=== PATIENT | male | born 1935 | race Caucasian/White ===

== ENCOUNTER 2022-01-08 08:23 | Inpatient (IN) | payer MEDICARE, MEDICAID, SELFPAY ==
[2022-01-08] VITALS (8 sets, daily range): BP systolic 93–138; BP diastolic 45–85; PULSE 64–67; RESP 16–20; TEMP 36.3–36.6; O2SAT 91–96; BMI 26.5; BMI 26.2
--- NOTE | ~2022-01-08 | CT_ITS ---
EXAMINATION: CT ANGIOGRAM OF THE CHEST WITH AND WITHOUT CONTRAST (CT PULMONARY ANGIOGRAM FOR PE) CLINICAL INFORMATION: Reason for Exam Hypoxia COMPARISON: January 08, 2022 TECHNIQUE: Prior to contrast administration, noncontrast localization images were obtained. Subsequently, multidetector volumetric imaging was performed from the thoracic inlet to below the diaphragms following the administration of 70 mL Omnipaque 350 intravenous contrast. No contrast reaction reported Sagittal, coronal, and MIP oblique sagittal reformatted images were obtained on the CT workstation, uploaded to PACS, and reviewed. This CT examination was performed using dose optimization techniques as appropriate, variously including the following: *Automated exposure control *Adjustment of mA and/or kV according to patient size (this includes techniques or standardized protocols for targeted exams where dose is matched to indication/reason for exam; i.e. extremities or head) *Use of iterative reconstruction technique Total exam dose-length product 484 mGy-cm FINDINGS: QUALITY OF STUDY/CONTRAST BOLUS: Satisfactory. PULMONARY ARTERIES: No central or segmental pulmonary emboli. THORACIC AORTA: Ascending thoracic aorta measures up to 4 cm in diameter. No thoracic aortic dissection is seen. No occlusive plaque is identified. LUNG: There is diffuse bilateral interstitial lung disease with fibrosis in a reticular pattern. There are also changes of paraseptal and centrilobular emphysema. The central airways are patent. There is bronchial wall thickening seen bilaterally. There is bronchiectatic change seen bilaterally. There is bilateral pleural thickening as well as a confluent region of disease medially within the left lower lobe. There is a confluent region of airspace disease seen within the right lower lobe. This does not show significant change compared to study of January 08, 2022. This may be related to pneumonia, atelectasis, or chronic scarring. There is diminished left lung volume. PLEURA: There are regions of pleural thickening seen bilaterally. No significant effusion is appreciated. MEDIASTINUM: The heart is enlarged. Status post post median sternotomy and CABG. Pacemaker in place. Coronary artery calcifications present. No pericardial effusion. There is again noted to be mediastinal lymphadenopathy with a 2.7 x 1.7 cm paratracheal lymph node and a 1.2 cm short axis lymph node in the left paratracheal region. There is an 8 mm short axis aortopulmonic window lymph node. Subcarinal lymphadenopathy is present with short axis diameter 1.1 cm. There is reflux of contrast within the hepatic veins consistent with elevated right heart pressures. CHEST WALL/AXILLA: No axillary or internal mammary lymphadenopathy. Status post median sternotomy. Pacemaker powerpack about the left anterior chest wall. OSSEOUS STRUCTURES: No acute or suspicious osseous abnormality. There is mild scoliosis of the thoracic spine convex right. UPPER ABDOMEN: There is reflux of contrast into the hepatic veins suggestive of elevated right heart pressures. CT/CT angio chest PE protocol IMPRESSION: No evidence of acute pulmonary artery embolus. Proximal ascending thoracic aorta measuring 4 cm in diameter without evidence of dissection. Diffuse interstitial lung disease with interstitial fibrosis as well as changes of centrilobular and paraseptal emphysema. Regions of confluent disease within the lower lobes bilaterally. Cardiomegaly with findings consistent with elevated right heart pressures. Mediastinal lymphadenopathy. VTE:
--- NOTE | ~2022-01-08 | CT_ITS ---
EXAMINATION: CT HEAD WITHOUT CONTRAST CLINICAL INFORMATION: Confusion COMPARISON: None TECHNIQUE: Contiguous axial imaging was performed from the skull base to vertex without intravenous administration of contrast. This CT examination was performed using dose optimization techniques as appropriate, variously including the following: *Automated exposure control *Adjustment of mA and/or kV according to patient size (this includes techniques or standardized protocols for targeted exams where dose is matched to indication/reason for exam; i.e. extremities or head) *Use of iterative reconstruction technique DLP: 764 mGy-cm FINDINGS: There is no evidence of acute intracranial hemorrhage or territorial infarction. No abnormal mass effect or midline shift is seen. Kinney to white matter differentiation is well preserved. No extra-axial fluid collections are identified. There is prominence of ventricles, sulci, and cisterns which are commensurate. There is periventricular white matter low density consistent with microangiopathy. The osseous structures and soft tissues are normal. The mastoid air cells and visualized portions of the paranasal sinuses are well aerated. CT/CT head/brain wo con IMPRESSION: No acute intracranial pathology. 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
--- NOTE | ~2022-01-08 | XR_ITS ---
EXAMINATION: XR CHEST CLINICAL INFORMATION: Altered mental status COMPARISON: None TECHNIQUE: Frontal view of the chest was obtained. FINDINGS: Cardiac silhouette is normal in size. Dual chamber pacemaker in place with tips of leads overlying the region of the right atrium and right ventricle. Prior coronary artery bypass graft surgery. There appears to be diffuse peribronchial cuffing of both lungs and nonspecific hazy and streaky pulmonary opacities. Differential diagnosis includes edema an/or inflammatory changes/pneumonia. The right lateral costophrenic sulcus is slightly blunted. A trace right pleural effusion is suspected. No pneumothorax. The visualized bones are intact. XR/XR chest 1V IMPRESSION: This is an abnormal chest radiograph. No comparison exams available to determine chronicity of abnormalities. Peribronchial cuffing and patchy pulmonary opacities could represent edema or infectious/inflammatory changes.
--- NOTE | ~2022-01-08 | CT_ITS ---
EXAMINATION: CT CHEST WITHOUT CONTRAST CLINICAL INFORMATION: Infiltrate pneumonia COMPARISON: Chest radiograph from 01/08/2022 TECHNIQUE: Multidetector volumetric CT imaging of the chest was done. Axial MIP volume rendering provided. Sagittal and coronal reformatted images were obtained. This CT examination was performed using dose optimization techniques as appropriate, variously including the following: *Automated exposure control *Adjustment of mA and/or kV according to patient size (this includes techniques or standardized protocols for targeted exams where dose is matched to indication/reason for exam; i.e. extremities or head) *Use of iterative reconstruction technique DLP: 134 mGy-cm FINDINGS: LUNGS/PLEURA: Biapical pleural parenchymal scarring. Prominent reticular nodular opacities with regions of honeycombing and bronchiectatic changes greatest in the bilateral lower lung darden suggesting elements of interstitial lung disease. Bilateral lower lung volumes and volume loss of the left lung field. Patchy radiopacities and pleural thickening in the bilateral lower lung darden, left greater than right, may represent infectious/inflammatory etiology versus atelectatic changes superimposed on chronic parenchymal changes. Correlation with symptomatology. Evaluation for nodules is limited secondary to parenchymal changes though no large suspicious pulmonary nodules or masses are noted. Central airways are patent. No pneumothorax. MEDIASTINUM: Heart is enlarged. No pericardial effusion. Coronary artery calcifications are noted. Aorta is nonaneurysmal and demonstrates atherosclerotic calcifications. Main pulmonary artery is not enlarged. Multiple enlarged paratracheal, precarinal and periaortic lymph nodes the largest measuring 1.5 cm in short axis. Visualized portions of the thyroid are unremarkable. Sternotomy wires are noted. Pacer wires terminating in the right atrium and ventricle with partially visualized pacer in the left chest. AXILLA: No lymphadenopathy. UPPER ABDOMEN: Right colonic interpositioning, Chilaiditi syndrome. Mild atrophy of the pancreas. Ectatic configuration of the abdominal aorta without aneurysmal dilatation. Mild fecal loading of the colon. OSSEOUS STRUCTURES: Multilevel degenerative changes of the thoracolumbar spine no large lytic or blastic lesions are noted. CT/CT chest wo con IMPRESSION: 1. Prominent reticular nodular opacities with regions of honeycombing and bronchiectatic changes greatest in the bilateral lower lung darden suggesting elements of interstitial lung disease. Bilateral lower lung volumes and volume loss of the left lung field. 2. Patchy radiopacities and pleural thickening in the bilateral lower lung darden, left greater than right, may represent infectious/inflammatory etiology versus atelectatic changes superimposed on chronic parenchymal changes. Correlation with symptomatology. 3. Multiple enlarged paratracheal, precarinal and periaortic lymph nodes the largest measuring 1.5 cm in short axis. 4. Right colonic interpositioning, Chilaiditi syndrome.
--- NOTE | 2022-01-08 08:30 | ED.SOB ---
HPI - SOB/Dyspnea General Stated Complaint: SOB Time Seen by Provider: 01/08/22 08:29 Source: patient Mode of arrival: ambulatory Limitations: no limitations PMFSH Past Medical History Attestation statement: The following information was validated with the patient.
--- NOTE | 2022-01-08 08:42 | ED.GENADULT ---
HPI - General Adult General Chief complaint: Failure to Thrive Stated complaint: SOB Time Seen by Provider: 01/08/22 08:29 Source: patient Mode of arrival: EMS Limitations: altered mental status (dementia) History of Present Illness HPI narrative: sent by SNF reportedly due to the patient not taking his medications for the past few weeks that have worsened, notes states he is also taking his oxygen off. He states he is fine but hungry. He is wearing his oxygen on arrival. MD complaint: refusing to take medications Onset (ago): unknown Severity: mild Relieving factors: none Exacerbating factors: none Associated symptoms: denies other symptoms Treatments prior to arrival: none Related Data Allergies Allergy/AdvReac Type Severity Reaction Status Date / Time morphine Allergy Unknown Unknown Verified 01/08/22 08:46 Review of Systems Review of Systems: ROS unable to be obtained due to dementia [facility] Past Medical History Source: nursing notes reviewed Medical History COPD (chronic obstructive pulmonary disease) Dementia Diabetes GERD (gastroesophageal reflux disease) HTN (hypertension) Social History Social History (Updated 01/08/22 @ 08:44 by Joanie Renteria DO) Patient Tobacco Use Status: Tobacco use Unknown Advance Directives: No Physical Exam ED Vital Signs: Vital Signs - 24 hr 01/08/22 08:37 01/08/22 08:47 01/08/22 10:00 Temperature 97.9 F Pulse Rate 65 65 64 Respiratory Rate 17 Blood Pressure 105/67 105/67 114/68 Pulse Oximetry 92 92 95 Oxygen Delivery Method Nasal Cannula Nasal Cannula Nasal Cannula Oxygen Flow Rate 2 2 01/08/22 08:47 01/08/22 11:04 01/08/22 13:04 Temperature Pulse Rate 65 65 Respiratory Rate 20 Blood Pressure 112/63 127/66 Pulse Oximetry 94 96 93 Oxygen Delivery Method Nasal Cannula Nasal Cannula Nasal Cannula Oxygen Flow Rate 2 2 BMI result Body Mass Index 26.5 Appearance: Alert. Oriented to self. No acute distress. Eyes: Pupils equal, round and reactive to light. ENT: Pharynx normal. Neck: Normal inspection. Neck supple. CVS: Normal heart rate and rhythm. Pulses normal. Respiratory: No respiratory distress. Breath sounds diminished but wearing his oxygen Abdomen: Soft and non-tender. Skin: Skin warm and dry. Normal skin color. Normal skin turgor. Extremities: No lower extremity edema. No calf ttp Neuro: Oriented X 1. No motor deficit. No sensory deficit. Course Course Course Narrative: patient yelling out repeatedly will give low dose zyprexa for agitation at this time. afebrile, no WBC count, abnormal CXR, no coughing still poor behavior control will obtain CT scan for further assessment of lungs no hypoxia here - using his O2, was given 2 doses of zyprexa signed out to Dr. Grady pending CT scan Medical Decision Making MDM Narrative Medical decision making narrative: 86 yo male with hx of COPD on home O2, dementia, DM, HTN, GERD sent from SNF from what EMS states due to patient not taking medications - at this time he is very happy here and asking for food, he is wearing his oxygen. I only see lexapro on his med list for agitation/behaviors. The RN was told by EMS that his agitation has been worsening. No trauma or signs of head injury noted or reported. Labs, UA, CXR ordered. Lab Data Result diagrams: 01/08/22 09:11 01/08/22 09:11 Labs: Lab Results 01/08/22 01/08/22 01/08/22 Range/Units 08:42 09:11 09:11 WBC 9.8 (4.8-10.8) X10*3/uL RBC 3.52 L (4.60-5.80) X10*6/uL Hgb 11.3 L (14.0-18.0) g/dl Hct 34.8 L (42.0-52.0) % MCV 98.9 H (80.0-98.0) fL MCH 32.1 (27.0-33.0) pg MCHC 32.5 (31.0-36.0) g/dl RDW 14.8 (11.0-16.0) % Plt Count 148 L (160-400) X10*3/uL MPV 10.0 (9.4-12.4) fL Immature Gran % (Auto) 0.2 (0.0-0.4) % Neut % (Auto) 53.9 (45-73) % Lymph % (Auto) 23.6 (20-40) % [place] % (Auto) 19.7 H (2-11) % Eos % (Auto) 1.7 (0-4) % Baso % (Auto) 0.9 (0-2) % Lymph # (Auto) 2.3 (1.2-4.9) X10*3/uL [place] # (Auto) 1.9 H (0.1-1.2) X10*3/uL Eos # (Auto) 0.2 (0.0-0.4) X10*3/uL Baso # (Auto) 0.1 (0.0-0.2) X10*3/uL Abs Immat Gran (auto) 0.02 (0.00-0.03) X10*3/uL Absolute Neuts (auto) 5.3 (2.0-8.3) x10*3/uL Absolute Nucleated RBC 0.000 (0.0-0.012) X10*3/uL Nucleated RBC % (auto) 0.0 (0.0-0.2) /100WBC Smear Tech's Comments VERIFIED Sodium 138 (135-145) mmol/L Potassium 4.2 (3.3-5.1) mmol/L Chloride 106 (96-108) mmol/L Carbon Dioxide 21 L (22-29) mmol/L Anion Gap 15 (12-20) BUN 10 (9-16) mg/dL Creatinine 1.01 (0.5-1.4) mg/dL Estim Creat Clear Calc 49.9 Estimated GFR > 60 POC Glucose 76 (60-115) mg/dL Random Glucose 103 (60-115) mg/dL Calcium 8.5 (8.4-10.2) mg/dL Magnesium 1.7 (1.6-2.6) mg/dL Total Bilirubin 0.6 (0.0-1.0) mg/dL Direct Bilirubin 0.3 (0.0-0.5) mg/dL AST 56 H (5-37) U/L ALT 48 H (0-40) U/L Alkaline Phosphatase 90 (39-117) U/L Total Protein 6.1 L (6.5-8.0) g/dL Albumin 3.4 L (3.5-5.0) g/dL Urine Color Urine Appearance Urine pH (5.0-8.0) Ur Specific [place] (1.005-1.025) Urine Protein (NEG-TRACE) MG/DL Urine Glucose (UA) (NEG) MG/DL Urine Ketones (NEG) MG/DL Urine Blood (NEG) Urine Nitrite (NEG) Ur Leukocyte Esterase (NEG) Urine RBC (0) /HPF Urine WBC (0-4) /HPF Ur Squamous Epith Cells /LPF Urine Bacteria /LPF COVID-19 ([facility]) (Negative) COVID-19 Clin Com 01/08/22 01/08/22 01/08/22 Range/Units 09:11 09:51 11:59 WBC (4.8-10.8) X10*3/uL RBC (4.60-5.80) X10*6/uL Hgb (14.0-18.0) g/dl Hct (42.0-52.0) % MCV (80.0-98.0) fL MCH (27.0-33.0) pg MCHC (31.0-36.0) g/dl RDW (11.0-16.0) % Plt Count (160-400) X10*3/uL MPV (9.4-12.4) fL Immature Gran % (Auto) (0.0-0.4) % Neut % (Auto) (45-73) % Lymph % (Auto) (20-40) % [place] % (Auto) (2-11) % Eos % (Auto) (0-4) % Baso % (Auto) (0-2) % Lymph # (Auto) (1.2-4.9) X10*3/uL [place] # (Auto) (0.1-1.2) X10*3/uL Eos # (Auto) (0.0-0.4) X10*3/uL Baso # (Auto) (0.0-0.2) X10*3/uL Abs Immat Gran (auto) (0.00-0.03) X10*3/uL Absolute Neuts (auto) (2.0-8.3) x10*3/uL Absolute Nucleated RBC (0.0-0.012) X10*3/uL Nucleated RBC % (auto) (0.0-0.2) /100WBC Smear Tech's Comments Sodium (135-145) mmol/L Potassium (3.3-5.1) mmol/L Chloride (96-108) mmol/L Carbon Dioxide (22-29) mmol/L Anion Gap (12-20) BUN (9-16) mg/dL Creatinine (0.5-1.4) mg/dL Estim Creat Clear Calc Estimated GFR POC Glucose 87 (60-115) mg/dL Random Glucose (60-115) mg/dL Calcium (8.4-10.2) mg/dL Magnesium (1.6-2.6) mg/dL Total Bilirubin (0.0-1.0) mg/dL Direct Bilirubin (0.0-0.5) mg/dL AST (5-37) U/L ALT (0-40) U/L Alkaline Phosphatase (39-117) U/L Total Protein (6.5-8.0) g/dL Albumin (3.5-5.0) g/dL Urine Color YELLOW Urine Appearance HAZY Urine pH 5.5 (5.0-8.0) Ur Specific [place] 1.015 (1.005-1.025) Urine Protein NEG (NEG-TRACE) MG/DL Urine Glucose (UA) NEG (NEG) MG/DL Urine Ketones NEG (NEG) MG/DL Urine Blood 3+ H (NEG) Urine Nitrite NEG (NEG) Ur Leukocyte Esterase NEG (NEG) Urine RBC 50-75 H (0) /HPF Urine WBC 0-2 (0-4) /HPF Ur Squamous Epith Cells TRACE /LPF Urine Bacteria NONE /LPF COVID-19 ([facility]ORA) Negative (Negative) COVID-19 Clin Com See Note 01/08/22 Range/Units 13:06 WBC (4.8-10.8) X10*3/uL RBC (4.60-5.80) X10*6/uL Hgb (14.0-18.0) g/dl Hct (42.0-52.0) % MCV (80.0-98.0) fL MCH (27.0-33.0) pg MCHC (31.0-36.0) g/dl RDW (11.0-16.0) % Plt Count (160-400) X10*3/uL MPV (9.4-12.4) fL Immature Gran % (Auto) (0.0-0.4) % Neut % (Auto) (45-73) % Lymph % (Auto) (20-40) % [place] % (Auto) (2-11) % Eos % (Auto) (0-4) % Baso % (Auto) (0-2) % Lymph # (Auto) (1.2-4.9) X10*3/uL [place] # (Auto) (0.1-1.2) X10*3/uL Eos # (Auto) (0.0-0.4) X10*3/uL Baso # (Auto) (0.0-0.2) X10*3/uL Abs Immat Gran (auto) (0.00-0.03) X10*3/uL Absolute Neuts (auto) (2.0-8.3) x10*3/uL Absolute Nucleated RBC (0.0-0.012) X10*3/uL Nucleated RBC % (auto) (0.0-0.2) /100WBC Smear Tech's Comments Sodium (135-145) mmol/L Potassium (3.3-5.1) mmol/L Chloride (96-108) mmol/L Carbon Dioxide (22-29) mmol/L Anion Gap (12-20) BUN (9-16) mg/dL Creatinine (0.5-1.4) mg/dL Estim Creat Clear Calc Estimated GFR POC Glucose 97 (60-115) mg/dL Random Glucose (60-115) mg/dL Calcium (8.4-10.2) mg/dL Magnesium (1.6-2.6) mg/dL Total Bilirubin (0.0-1.0) mg/dL Direct Bilirubin (0.0-0.5) mg/dL AST (5-37) U/L ALT (0-40) U/L Alkaline Phosphatase (39-117) U/L Total Protein (6.5-8.0) g/dL Albumin (3.5-5.0) g/dL Urine Color Urine Appearance Urine pH (5.0-8.0) Ur Specific [place] (1.005-1.025) Urine Protein (NEG-TRACE) MG/DL Urine Glucose (UA) (NEG) MG/DL Urine Ketones (NEG) MG/DL Urine Blood (NEG) Urine Nitrite (NEG) Ur Leukocyte Esterase (NEG) Urine RBC (0) /HPF Urine WBC (0-4) /HPF Ur Squamous Epith Cells /LPF Urine Bacteria /LPF COVID-19 ([facility]) (Negative) COVID-19 Clin Com ECG Data Attestation: I personally reviewed and interpreted this ECG as follows: Interpretation: Rate: 65 Rhythm: ventricular paced [place]: rightward varying p waves widened QRS complex. ST T wave : tall T waves, inverted III and aVF qTC: prolonged prior studies: no acute ischemia The study has been interpreted contemporaneously by me. Discharge Plan Discharge Clinical Impression: Dementia Patient Disposition: Still a Patient Instructions: Dementia (ED) Additional Instructions: return to ED for any worsening symptoms or concerns no hypoxia in the ED - kept oxygen on the entire time for behaviors can try to give PRN zyprexa orally 2.5mg BID or start him on risperdal BID daily for behavior control
[2022-01-08 08:46] LABS: Glucose, Whole Blood 76 mg/dL (60-115)
--- NOTE | 2022-01-08 08:46 | ECG_ITS ---
Test Reason : weakness Blood Pressure : / mmHG Vent. Rate : 065 BPM Atrial Rate : 089 BPM P-R Int : 000 ms QRS Dur : 150 ms QT Int : 464 ms P-R-T Axes : 000 144 -09 degrees QTc Int : 482 ms Sinus rhythm with complete heart block and Ventricular-paced rhythm Abnormal ECG No previous ECGs available Referred By: Joanie Renteria Electronically Signed By:TRACEE CUMMINS MD
[2022-01-08 09:23] LABS: Basophils Absolute Auto 0.1 X10*3/uL (0.0-0.2); Basophils Percent Auto 0.9 % (0-2); Eosinophils Absolute Auto 0.2 X10*3/uL (0.0-0.4); Eosinophils Percent Auto 1.7 % (0-4); Hematocrit 34.8 % (42.0-52.0); Hemoglobin 11.3 g/dl (14.0-18.0); Imm Gran Abs Auto 0.02 X10*3/uL (0.00-0.03); Imm Gran Pct Auto 0.2 % (0.0-0.4); Lymphocytes Absolute Auto 2.3 X10*3/uL (1.2-4.9); Lymphocytes Percent Auto 23.6 % (20-40); MANUAL DIFF FLAG SCAN; Mean Corpuscular Volume 98.9 fL (80.0-98.0); Monocytes Absolute Auto 1.9 X10*3/uL (0.1-1.2); Monocytes Percent Auto 19.7 % (2-11); Neutrophils Absolute Auto 5.3 x10*3/uL (2.0-8.3); Neutrophils Percent Auto 53.9 % (45-73); Platelet Count 148 X10*3/uL (160-400); Red Blood Count 3.52 X10*6/uL (4.60-5.80); Red Cell Distribution Width 14.8 % (11.0-16.0); SCAN SMEAR FLAG 1; White Blood Count 9.8 X10*3/uL (4.8-10.8)
[2022-01-08 09:30] LABS: COVID-19 Test Negative (Negative); IDNOW Serial# 9DB6401D; Mean Corpuscular HGB Conc 32.5 g/dl (31.0-36.0); Mean Corpuscular Hemoglobin 32.1 pg (27.0-33.0)
[2022-01-08 09:32] LABS: Alanine Aminotransferase 48 U/L (0-40); Albumin Level 3.4 g/dL (3.5-5.0); Alkaline Phosphatase 90 U/L (39-117); Anion Gap 15 (12-20); Aspartate Amino Transferase 56 U/L (5-37); Bilirubin Direct 0.3 mg/dL (0.0-0.5); Bilirubin Total 0.6 mg/dL (0.0-1.0); Blood Urea Nitrogen 10 mg/dL (9-16); Calcium 8.5 mg/dL (8.4-10.2); Carbon Dioxide 21 mmol/L (22-29); Chloride 106 mmol/L (96-108); Creatinine Clr Calc Pharmacy 49.9; Estimated Glomerular Filt Rate > 60; Glucose Random 103 mg/dL (60-115); Magnesium 1.7 mg/dL (1.6-2.6); Potassium 4.2 mmol/L (3.3-5.1); Sodium 138 mmol/L (135-145); Total Protein 6.1 g/dL (6.5-8.0)
[2022-01-08 09:54] LABS: SLIDE REVIEW VERIFIED
[2022-01-08] MEDS: OLANZapine 2.5 MG TABLET PO ×2 (09:58→10:54)
[2022-01-08 10:06] LABS: Glucose, Whole Blood 87 mg/dL (60-115)
--- NOTE | 2022-01-08 11:34 | PC.NURSE ---
PER EMS REPORT. PT SENT FROM [facility] FOR EVALUATION OF INCREASED AGITATION, REFUSING CARE, REMOVING O2, REFUSING MEDS. 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 PT WAS SENT TO ED FOR EVALUATION OF LOW O2 SAT. PT ALERT, HAS BASELINE DEMENTIA. PT AGITATED, YELLING HELP AND ACCUSING STAFF OF CONSPIRING TO FINISH HIM OFF . PT'S DAUGHTERS ROSA AND BÁRBARA IN TO VISIT. BOTH CONTACT INFORMATION ON FILE.
--- NOTE | 2022-01-08 12:24 | PC.NURSE ---
urine obtained via straight cath. pt combative during procedure, daughter Claudia outside of room during procedure.
[2022-01-08 12:40] LABS: Appearance Urine HAZY; Color Urine YELLOW; Glucose Urine UA NEG (NEG); Leukocyte Esterase Urine NEG (NEG); Nitrite Urine NEG (NEG); PH 5.5 (5.0-8.0); Specific Gravity - Urine 1.015 (1.005-1.025); UACC Culture Trigger NO; Urine Blood 3+ (NEG); Urine Ketones NEG (NEG); Urine Protein NEG (NEG-TRACE)
[2022-01-08 12:51] LABS: RBC Urine 50-75 /HPF (0); Squamous Epithelial Cell Urine TRACE /LPF; WBC Urine 0-2 /HPF (0-4)
[2022-01-08 13:12] LABS: Glucose, Whole Blood 97 mg/dL (60-115)
[2022-01-08 14:49] LABS: Venous Blood Gas Refer to POC result
[2022-01-08 14:52] LABS: VBG Base Excess 3.4 mmol/L; VBG HCO3 28 mmol/L (22-26); VBG pCO2 45 mmHg; VBG pO2 37 mmHg
[2022-01-08 14:58] LABS: D Dimer High Sensitivity 545 NG/ML
--- NOTE | 2022-01-08 15:11 | PHA.MEDREC ---
Pharmacy Consult ? Medication Reconciliation Pharmacy has completed the medication reconciliation. Pt from [facility] with list
[2022-01-08] MEDS: Piperacillin Sodium/Tazobactam 3.375 GM in 0.9 % Sodium Chloride 50 ML IV (15:32)
--- NOTE | 2022-01-08 15:54 | PM.IMHP ---
History of Present Illness Date of Service: 01/08/22 <CLAUDETTE Nguyen - Last Filed: 01/09/22 08:03> Attending physician on admission: Param David <CLAUDETTE Nguyen - Last Filed: 01/09/22 08:03> Chief Complaint: AMS/pneumonia <CLAUDETTE Nguyen - Last Filed: 01/09/22 08:03> Patient is an 86-year-old male with past medical history significant for coronary artery disease s/p CABG x4, sick sinus syndrome s/p pacer, idiopathic pulmonary fibrosis, COPD, uncontrolled type 2 diabetes, hypertension, BPH, GERD, and dementia who resides at [facility]. prison staff reports that patient has been increasingly agitated over the last day with decreased oxygen saturation. The patient is on 4 L of oxygen via nasal cannula at baseline with oxygen levels ranging between 90-92%. However the patient has been pulling off the nasal cannula due to agitation with oxygen saturations down to 69%. Improvement to 98% on 10L with non rebreather. In ED oxygen sat did fall to 86% on 4L. Upon discussion with direct nursing staff, the patient is alert and oriented at baseline and is able to make his needs known. He does have occasional episodes of agitation with screaming outbursts but is quickly redirected. He has had recurrent admissions due to aspiration pneumonia, most recently to [facility] on 10/29/2021. Per nursing staff from the [facility], vital signs have been stable and the patient has been afebrile. Patient is unable to provide much history. He is able to answer several questions before becoming agitated about being in the hospital and the ?cords? he is hooked up to. Much of history obtained from prior records from [facility] as well as [facility] staff. EKG in ED showed normal sinus rhythm with complete heart block with ventricular pacing. CT of the chest shows prominent reticular nodular opacities with regions of honeycombing and bronchiectatic changes in the bilateral lower lung darden, patchy radiopacities and pleural thickening in the bilateral lower lung darden, possibly representing infectious versus inflammatory etiology versus atelectatic changes superimposed on chronic parenchymal changes. Hematology studies stable, WBC 9.8. VBG essentially normal with mildly elevated HC03 of 28. Chemistries unremarkable. Urinalysis is significant for 3+ hematuria. Has received IV zosyn and continues on 2L oxygen with stable o2 sats. Has received single dose of zyprexa due to aggitation thought patient still having outbreaks of aggitation. <CLAUDETTE Nguyen - Last Filed: 01/09/22 08:03> 86-year-old male with history significant for coronary artery disease s/p CABG x4, sick sinus syndrome s/p pacer, idiopathic pulmonary fibrosis, COPD, uncontrolled type 2 diabetes, hypertension, BPH, GERD, and dementia who resides at [facility]. prison staff reports that patient has been increasingly agitated over the last day with decreased oxygen saturation. The patient is on 4 L of oxygen via nasal cannula at baseline with oxygen levels ranging between 90-92%. However the patient has been pulling off the nasal cannula due to agitation with oxygen saturations down to 69%. Improvement to 98% on 10L with non rebreather. In ED oxygen sat did fall to 86% on 4L. Upon discussion with direct nursing staff, the patient is alert and oriented at baseline and is able to make his needs known. He does have occasional episodes of agitation with screaming outbursts but is quickly redirected. He has had recurrent admissions due to aspiration pneumonia, most recently to [facility] on 10/29/2021. Per nursing staff from the [facility], vital signs have been stable and the patient has been afebrile. Patient is unable to provide much history. He is able to answer several questions before becoming agitated about being in the hospital and the ?cords? he is hooked up to. Much of history obtained from prior records from [facility] as well as [facility] staff. EKG in ED showed normal sinus rhythm with complete heart block with ventricular pacing. CT of the chest shows prominent reticular nodular opacities with regions of honeycombing and bronchiectatic changes in the bilateral lower lung darden, patchy radiopacities and pleural thickening in the bilateral lower lung darden, possibly representing infectious versus inflammatory etiology versus atelectatic changes superimposed on chronic parenchymal changes. Hematology studies stable, WBC 9.8. VBG essentially normal with mildly elevated HC03 of 28. Chemistries unremarkable. Urinalysis is significant for 3+ hematuria. Has received IV zosyn and continues on 2L oxygen with stable o2 sats. Has received single dose of zyprexa due to aggitation thought patient still having outbreaks of aggitation. <Param David MD - Last Filed: 01/10/22 08:14> Review of Systems Review of Systems: Gen: no fever Resp: no sob, no cough CV: no chest, no PARRY, no leg edema GI: No n/v, no abd pain Neuro:+ confusion <Param David MD - Last Filed: 01/10/22 08:14> Yes all other systems are reviewed and are negative <CLAUDETTE Nguyen - Last Filed: 01/09/22 08:03> [facility] Medical History: Medical History (Updated 01/09/22 @ 10:16 by CLAUDETTE Nguyen) CAD (coronary artery disease) COPD (chronic obstructive pulmonary disease) COPD exacerbation Dementia Diabetes GERD (gastroesophageal reflux disease) HTN (hypertension) Pacemaker SSS (sick sinus syndrome) <CLAUDETTE Nguyen - Last Filed: 01/09/22 08:03> Family History: Family History (Updated 01/08/22 @ 16:37 by CLAUDETTE Nguyen) Other No significant family history <CLAUDETTE Nguyen - Last Filed: 01/09/22 08:03> Pertinent family history: Unable to obtain further information from patient at this time due to mental status <CLAUDETTE Nguyen - Last Filed: 01/09/22 08:03> Surgical History: Surgical History (Updated 01/08/22 @ 16:08 by CLAUDETTE Nguyen) History of permanent cardiac pacemaker placement S/P CABG x 4 <CLAUDETTE Nguyen - Last Filed: 01/09/22 08:03> Social History: Social History (Updated 01/08/22 @ 08:44 by Joanie Renteria DO) Household Members: Other Housing: Assisted Living Facility Do you presently have visiting nurse or other home services: No Patient Tobacco Use Status: Never used Tobacco Use of substances other than those prescribed or required for medical reasons: No Currently Displaying Signs/Symptoms of Drug Intoxication Withdrawal: No Have you been hit, kicked, punched, or otherwise hurt by someone within the past year? If so, by whom?: No Do you feel safe in your current relationship?: No Current Relationship Is there a partner from a previous relationship who is making you feel unsafe now?: No Are you made to feel afraid or neglected: No Advance Directives: No Do you have thoughts of harming others: None Do you have a plan to hurt others: No Plan Nutrition Risks: No Nutritional Risk Poor oral hygiene: No service: No Current occupational status: retired <CLAUDETTE Nguyen - Last Filed: 01/09/22 08:03> Meds Allergies/Adverse reactions: Allergies Allergy/AdvReac Type Severity Reaction Status Date / Time morphine Allergy Unknown Unknown Verified 01/08/22 08:46 <CLAUDETTE Nguyen - Last Filed: 01/09/22 08:03> Active Medications: Current Medications Pharmacy Consult (Consult Rx Perform Med Rec) 1 each MISCELLANE ONCE PRN PRN Reason: Consult order <CLAUDETTE Nguyen - Last Filed: 01/09/22 08:03> Home medications: Home Medications Medication Instructions Recorded Confirmed Last Taken Type acyclovir 400 mg tablet 1 tab PO BID 01/08/22 01/08/22 Unknown History albuterol sulfate 90 mcg/actuation 2 puff inhalation Q6H PRN Wheezing 01/08/22 01/08/22 Unknown History aerosol inhaler aspirin 81 mg tablet,delayed 81 mg PO DAILY 01/08/22 01/08/22 Unknown History release cholecalciferol (vitamin D3) 25 25 mcg PO DAILY 01/08/22 01/08/22 Unknown History mcg (1,000 unit) tablet escitalopram oxalate 5 mg tablet 1 tab PO DAILY 01/08/22 01/08/22 Unknown History ferrous sulfate 324 mg (65 mg 324 mg PO DAILY 01/08/22 01/08/22 Unknown History iron) tablet,delayed release finasteride 5 mg tablet 1 tab PO DAILY 01/08/22 01/08/22 Unknown History gabapentin 300 mg capsule 1 cap PO TID 01/08/22 01/08/22 Unknown History insulin glargine 100 unit/mL (3 15 unit subcut DAILY@2000 01/08/22 01/08/22 Unknown History mL) subcutaneous pen (Basaglar KwikPen U-100 Insulin) insulin lispro 100 unit/mL 6 unit subcut TIDAC 01/08/22 01/08/22 Unknown History subcutaneous solution loperamide 2 mg tablet 2 mg PO TID PRN Diarrhea 01/08/22 01/08/22 Unknown History loratadine 10 mg tablet 10 mg PO DAILY PRN Allergic 01/08/22 01/08/22 Unknown History Symptoms metformin 500 mg tablet,extended 1 tab PO BID 01/08/22 01/08/22 Unknown History release 24 hr multivitamin 1 tab PO DAILY 01/08/22 01/08/22 Unknown History omeprazole 20 mg capsule,delayed 1 cap PO DAILY 01/08/22 01/08/22 Unknown History release potassium chloride 10 mEq 1 cap PO DAILY 01/08/22 01/08/22 Unknown History capsule,extended release pravastatin 40 mg tablet 1 tab PO DAILY@199901/08/22 01/08/22 Unknown History sennosides 8.6 mg tablet (senna) 8.6 mg PO BEDTIME PRN Constipation 01/08/22 01/08/22 Unknown History sulfamethoxazole 800 1 tab PO MOWEFR@1200 01/08/22 01/08/22 Unknown History mg-trimethoprim 160 mg tablet tamsulosin 0.4 mg capsule 1 cap PO DAILY@199901/08/22 01/08/22 Unknown History umeclidinium 62.5 mcg/actuation 1 puff inhalation DAILY 01/08/22 01/08/22 Unknown History blister powder for inhalation (Incruse Ellipta) vitamin B complex 1 tab PO DAILY 01/08/22 01/08/22 Unknown History <CLAUDETTE Nguyen - Last Filed: 01/09/22 08:03> Physical Exam Vital Signs and Narrative: Vital Signs: Last Vital Signs Temp 97.9 F 01/08/22 08:37 Pulse 65 01/08/22 13:04 Resp 20 01/08/22 13:04 BP 127/66 01/08/22 13:04 Pulse Ox 93 01/08/22 13:04 O2 Del Method 01/08/22 13:04 O2 Flow Rate 2 01/08/22 13:04 Oxygen Flow Rate 2 01/08/22 08:47 BMI result Body Mass Index 26.5 <CLAUDETTE Nguyen - Last Filed: 01/09/22 08:03> Constitutional - Awake and Alert, Intermittently aggitated otherwise no acute distress Cardiovascular - S1S2, RRR, No edema Respiratory -rhonchi right upper lobe with diffuse crackles bilaterally Normal lung expansion, Normal respiratory effort, No respiratory distress, CTA bilaterally Gastrointestinal - NT / ND; +BS; No rebound or guarding - No CVA tenderness Extremities - no calf tenderness bilaterally, no swelling Musculoskeletal - Normal inspection, normal ROM Skin - Warm/Dry. Healing ecchymotic lesion with shallow 1cm abrasion RLE Neurological - Alert and oriented to person and time, disoriented to place. Patient is confused appearing though is able to answer several questions. Intermittent outbursts of anger/agitation, No focal deficit. strength in tact bilaterally Psychological - Appropriate affect <CLAUDETTE Nguyen - Last Filed: 01/09/22 08:03> Constitutional - Awake and Alert, Intermittently aggitated otherwise no acute distress Cardiovascular - S1S2, RRR, No edema Respiratory -rhonchi right upper lobe with diffuse crackles bilaterally Normal lung expansion, Normal respiratory effort, No respiratory distress, CTA bilaterally Gastrointestinal - NT / ND; +BS; No rebound or guarding - No CVA tenderness Extremities - no calf tenderness bilaterally, no swelling Musculoskeletal - Normal inspection, normal ROM Skin - Warm/Dry. Healing ecchymotic lesion with shallow 1cm abrasion RLE Neurological - Alert and oriented to person and time, disoriented to place. Patient is confused appearing though is able to answer several questions. Intermittent outbursts of anger/agitation, No focal deficit. strength in tact bilaterally Psychological - Appropriate affect <Param David MD - Last Filed: 01/10/22 08:14> Results Labs CBC and Chem 7: : 01/09/22 15:27 01/09/22 05:14 <CLAUDETTE Nguyen - Last Filed: 01/09/22 08:03> Labs: Laboratory Results - last 24 hr 01/08/22 01/08/22 01/08/22 08:42 09:11 09:11 MCV 98.9 H MCH 32.1 MCHC 32.5 RDW 14.8 Plt Count 148 L MPV 10.0 Immature Gran % (Auto) 0.2 Neut % (Auto) 53.9 Lymph % (Auto) 23.6 Moca % (Auto) 19.7 H Eos % (Auto) 1.7 Baso % (Auto) 0.9 Lymph # (Auto) 2.3 Moca # (Auto) 1.9 H Eos # (Auto) 0.2 Baso # (Auto) 0.1 Abs Immat Gran (auto) 0.02 Absolute Neuts (auto) 5.3 Absolute Nucleated RBC 0.000 Nucleated RBC % (auto) 0.0 Smear Tech's Comments VERIFIED D-Dimer High Sensitivty VBG pH VBG pCO2 VBG pO2 VBG HCO3 VBG O2 Saturation VBG Base Excess Anion Gap 15 Estim Creat Clear Calc 49.9 Estimated GFR > 60 POC Glucose 76 Random Glucose 103 Lactic Acid Calcium 8.5 Magnesium 1.7 Total Bilirubin 0.6 Direct Bilirubin 0.3 AST 56 H ALT 48 H Alkaline Phosphatase 90 Total Protein 6.1 L Albumin 3.4 L Urine Color Urine Appearance Urine pH Ur Specific [place] Urine Protein Urine Glucose (UA) Urine Ketones Urine Blood Urine Nitrite Ur Leukocyte Esterase Urine RBC Urine WBC Ur Squamous Epith Cells Urine Bacteria COVID-19 (DORA) COVID-[place] 01/08/22 01/08/22 01/08/22 09:11 09:51 11:59 MCV MCH MCHC RDW Plt Count MPV Immature Gran % (Auto) Neut % (Auto) Lymph % (Auto) Moca % (Auto) Eos % (Auto) Baso % (Auto) Lymph # (Auto) Moca # (Auto) Eos # (Auto) Baso # (Auto) Abs Immat Gran (auto) Absolute Neuts (auto) Absolute Nucleated RBC Nucleated RBC % (auto) Smear Tech's Comments D-Dimer High Sensitivty VBG pH VBG pCO2 VBG pO2 VBG HCO3 VBG O2 Saturation VBG Base Excess Anion Gap Estim Creat Clear Calc Estimated GFR POC Glucose 87 Random Glucose Lactic Acid Calcium Magnesium Total Bilirubin Direct Bilirubin AST ALT Alkaline Phosphatase Total Protein Albumin Urine Color YELLOW Urine Appearance HAZY Urine pH 5.5 Ur Specific [place] 1.015 Urine Protein NEG Urine Glucose (UA) NEG Urine Ketones NEG Urine Blood 3+ H Urine Nitrite NEG Ur Leukocyte Esterase NEG Urine RBC 50-75 H Urine WBC 0-2 Ur Squamous Epith Cells TRACE Urine Bacteria NONE COVID-19 (DORA) Negative COVID-19 [employer] See Note 01/08/22 01/08/22 01/08/22 13:06 14:39 14:39 MCV MCH MCHC RDW Plt Count MPV Immature Gran % (Auto) Neut % (Auto) Lymph % (Auto) Moca % (Auto) Eos % (Auto) Baso % (Auto) Lymph # (Auto) Moca # (Auto) Eos # (Auto) Baso # (Auto) Abs Immat Gran (auto) Absolute Neuts (auto) Absolute Nucleated RBC Nucleated RBC % (auto) Smear Tech's Comments D-Dimer High Sensitivty 545 VBG pH VBG pCO2 VBG pO2 VBG HCO3 VBG O2 Saturation VBG Base Excess Anion Gap Estim Creat Clear Calc Estimated GFR POC Glucose 97 Random Glucose Lactic Acid 2.0 Calcium Magnesium Total Bilirubin Direct Bilirubin AST ALT Alkaline Phosphatase Total Protein Albumin Urine Color Urine Appearance Urine pH Ur Specific [place] Urine Protein Urine Glucose (UA) Urine Ketones Urine Blood Urine Nitrite Ur Leukocyte Esterase Urine RBC Urine WBC Ur Squamous Epith Cells Urine Bacteria COVID-19 (DORA) COVID-19 [employer] 01/08/22 14:47 MCV MCH MCHC RDW Plt Count MPV Immature Gran % (Auto) Neut % (Auto) Lymph % (Auto) Moca % (Auto) Eos % (Auto) Baso % (Auto) Lymph # (Auto) Moca # (Auto) Eos # (Auto) Baso # (Auto) Abs Immat Gran (auto) Absolute Neuts (auto) Absolute Nucleated RBC Nucleated RBC % (auto) Smear Tech's Comments D-Dimer High Sensitivty VBG pH 7.40 VBG pCO2 45 VBG pO2 37 VBG HCO3 28 H VBG O2 Saturation 45.0 VBG Base Excess 3.4 Anion Gap Estim Creat Clear Calc Estimated GFR POC Glucose Random Glucose Lactic Acid Calcium Magnesium Total Bilirubin Direct Bilirubin AST ALT Alkaline Phosphatase Total Protein Albumin Urine Color Urine Appearance Urine pH Ur Specific [place] Urine Protein Urine Glucose (UA) Urine Ketones Urine Blood Urine Nitrite Ur Leukocyte Esterase Urine RBC Urine WBC Ur Squamous Epith Cells Urine Bacteria COVID-19 (DORA) COVID-19 [employer] <CLAUDETTE Nguyen - Last Filed: 01/09/22 08:03> ECG Attestation: I personally reviewed and interpreted this ECG as follows: <CLAUDETTE Nguyen - Last Filed: 01/09/22 08:03> Interpretation: Normal sinus rhythm, rate 65, no ST-T wave abnormality <CLAUDETTE Nguyen - Last Filed: 01/09/22 08:03> Imaging Radiologist's Impressions: Impressions Chest X-Ray 01/08/22 09:17 IMPRESSION: This is an abnormal chest radiograph. No comparison exams available to determine chronicity of abnormalities. Peribronchial cuffing and patchy pulmonary opacities could represent edema or infectious/inflammatory changes. Chest CT 01/08/22 11:47 IMPRESSION: 1. Prominent reticular nodular opacities with regions of honeycombing and bronchiectatic changes greatest in the bilateral lower lung darden suggesting elements of interstitial lung disease. Bilateral lower lung volumes and volume loss of the left lung field. 2. Patchy radiopacities and pleural thickening in the bilateral lower lung darden, left greater than right, may represent infectious/inflammatory etiology versus atelectatic changes superimposed on chronic parenchymal changes. Correlation with symptomatology. 3. Multiple enlarged paratracheal, precarinal and periaortic lymph nodes the largest measuring 1.5 cm in short axis. 4. Right colonic interpositioning, Chilaiditi syndrome. <CLAUDETTE Nguyen - Last Filed: 01/09/22 08:03> Assessment and Plan (1) Acute hypoxemic respiratory failure: Status: Acute <CLAUDETTE Nguyen Last Filed: 01/09/22 08:03> (2) Aspiration pneumonia of both lungs: Status: Acute <CLAUDETTE Nguyen - Last Filed: 01/09/22 08:03> (3) Metabolic encephalopathy: Status: Acute <CLAUDETTE Nguyen - Last Filed: 01/09/22 08:03> (4) Dementia: Status: Acute <CLAUDETTE Nguyen - Last Filed: 01/09/22 08:03> Patient is an 86-year-old male with past medical history significant for coronary artery disease s/p CABG x4, sick sinus syndrome s/p pacer, idiopathic pulmonary fibrosis, COPD, uncontrolled type 2 diabetes, hypertension, BPH, GERD, and dementia who resides at [facility]. There has been increased aggitation reported by [facility] staff and increased hypoxia despite home oxygen. Has had recurrent aspiration pneumonia in setting of dementia with chest CT suggestive of probable bilateral pneumonia. Hypoxia has improved with supplemental oxygen. Patient remains intermittently aggitated despite zyprexa dose, though does have these episodes at baseline per [facility] staff. 1- Acute hypoxemic respiratory failure/COPD -In setting of aspiration pneumonia, pulmonary fibrosis, and COPD -Continue supplemental O2 to maintain oxygen levels 90-92% -IV solumedrol ordered 2-Aspiration pneumonia -Recurrent, most recent admission 10/29/21 to [facility] for IV abx -Chest ct showing patchy radiopacities and pleural thickening in the bilateral lowerlung darden, left greater than right, may representinfectious/inflammatory etiology versus atelectatic changes superimposed on chronic parenchymal changes -At risk for multi-drug resistent bacteria given recent hospital admission as well as COPD/IPF. Continue IV zosyn for anaerobic coverage -Continue oxygen as above -Swallow eval ordered. Diet recommendations to be made pending eval 3-Metabolic encephalopathy -Increased aggitation from baseline dementia per discussion with [facility] staff. Likely secondary to infection -Received dose of zyprexa in ED -Continue escitalipram 4-Hematuria -3+ blood on urinalysis -Urine culture ordered to rule out infection DVT prophylaxis- lovenox Full code based on [facility] 09/2021. Patient unable to confirm code status based on mental status. HCP is daughter. Patient requires inpatient stay of at least 2 midnights based on acute mental status changes likely secondary to infection and IV antibiotics for management of aspiration pneumonia with acute hypoxia. <CLAUDETTE Nguyen - Last Filed: 01/09/22 08:03> Patient is an 86-year-old male with past medical history significant for coronary artery disease s/p CABG x4, sick sinus syndrome s/p pacer, idiopathic pulmonary fibrosis, COPD, uncontrolled type 2 diabetes, hypertension, BPH, GERD, and dementia who resides at [facility]. There has been increased aggitation reported by SNF staff and increased hypoxia despite home oxygen. Has had recurrent aspiration pneumonia in setting of dementia with chest CT suggestive of probable bilateral pneumonia. Hypoxia has improved with supplemental oxygen. Patient remains intermittently aggitated despite zyprexa dose, though does have these episodes at baseline per [facility] staff. 1- Acute hypoxemic respiratory failure due to aspiration Pneumonia and underlying pulmonary fibrosis, COPD with acute exacerbation -Continue supplemental O2 to maintain oxygen levels 90-92% -IV steroid -Bronchodilators by Neb - 2-Aspiration pneumonia -Recurrent, most recent admission 10/29/21 to [facility] for IV abx -Chest ct showing patchy radiopacities and pleural thickening in the bilateral lowerlung darden, left greater than right, may representinfectious/inflammatory etiology versus atelectatic changes superimposed on chronic parenchymal changes -At risk for multi-drug resistent bacteria given recent hospital admission as well as COPD/IPF. Continue IV zosyn D1 -Continue oxygen as above -Swallow eval ordered. Diet recommendations to be made pending eval 3-Metabolic encephalopathy -Increased aggitation from baseline dementia per discussion with [facility] staff. Likely secondary to infection and hypoxia -Received dose of zyprexa in ED to control agitation 4-Hematuria -3+ blood on urinalysis -Urine culture ordered to rule out infection 5. Dementia, unknown typic with behavior disturbance DVT prophylaxis- lovenox Full code based on [facility] 09/2021. Patient unable to confirm code status based on mental status. HCP is daughter. Patient requires inpatient stay of at least 2 midnights based on acute mental status changes likely secondary to infection and IV antibiotics for management of aspiration pneumonia with acute hypoxia. <Param David MD - Last Filed: 01/10/22 08:14> Quality Stroke Does the patient have a stroke diagnosis?: No <CLAUDETTE Nguyen - Last Filed: 01/09/22 08:03> VTE Prior VTE?: No <CLAUDETTE Nguyen - Last Filed: 01/09/22 08:03> VTE Risk Level:: Medical - moderate - high <CLAUDETTE Nguyen - Last Filed: 01/09/22 08:03> VTE Device Contraindication: Treatment Not Indicated <CLAUDETTE Nguyen - Last Filed: 01/09/22 08:03> VTE Drug Contraindication: N/A - Med Ordered <CLAUDETTE Nguyen - Last Filed: 01/09/22 08:03>
[2022-01-08] MEDS: 0.9 % Sodium Chloride 1,000 ML 100 ML IVCONT (17:45)
[2022-01-08] MEDS: Enoxaparin Sodium 40 MG/0.4 ML SYRINGE SUBCUT (18:46)
[2022-01-08] MEDS: methylPREDNISolone Sod Succ 40 MG/ML VIAL IVPUSH ×2 (19:23→22:29)
--- NOTE | 2022-01-08 19:29 | PC.NURSE ---
report recceived from Evy DOBSON. assumed care of patient at 1900/ new IV placed #22G IV LAC. fluids running 100ml/hr. report given to marcelino DOBSON. pt to be transported to bed 346 by information technology technician. pt reports no pain.
[2022-01-08] MEDS: Tamsulosin HCL 0.4 MG CAPSULE PO (20:43)
[2022-01-08] MEDS: Pravastatin Sodium 40 MG TABLET PO (20:43)
[2022-01-08] MEDS: Gabapentin 300 MG CAPSULE PO (20:43)
[2022-01-08] MEDS: metFORMIN HCl ER 500 MG TAB.ER.24H PO (20:43)
[2022-01-08 20:45] LABS: Glucose, Whole Blood 97 mg/dL (60-115)
[2022-01-08] MEDS: Acyclovir 200 MG CAPSULE 400 MG PO (20:51)
--- NOTE | 2022-01-08 23:38 | PC.NURSE ---
pt's blood sugar at bedtime was 97, [employer] connect message sent to Dr. Fallon about giving 15 units of scheduled Lantus, Dr. Fallon said to hold it. Lantus held.
[2022-01-09 04:00] VITALS: BP 142/69; PULSE 65; RESP 19; TEMP 36.4; O2SAT 90
[2022-01-09] MEDS: 0.9 % Sodium Chloride 1,000 ML 100 ML IVCONT ×3 (04:01→22:37)
[2022-01-09] MEDS: methylPREDNISolone Sod Succ 40 MG/ML VIAL IVPUSH ×4 (04:27→21:19)
[2022-01-09] MEDS: Omeprazole 20 MG CAPSULE.DR PO (06:04)
[2022-01-09 06:34] LABS: MANUAL DIFF FLAG NO
[2022-01-09 06:48] LABS: Basophils Percent Auto 0.5 % (0-2); Eosinophils Percent Auto 0.3 % (0-4); Hematocrit 33.4 % (42.0-52.0); Imm Gran Abs Auto 0.03 X10*3/uL (0.00-0.03); Imm Gran Pct Auto 0.5 % (0.0-0.4); Lymphocytes Percent Auto 33.4 % (20-40); Mean Corpuscular HGB Conc 32.9 g/dl (31.0-36.0); Mean Corpuscular Hemoglobin 32.4 pg (27.0-33.0); Mean Corpuscular Volume 98.5 fL (80.0-98.0); Mean Platelet Volume 10.1 fL (9.4-12.4); Monocytes Absolute Auto 0.2 X10*3/uL (0.1-1.2); Monocytes Percent Auto 3.1 % (2-11); Neutrophils Absolute Auto 3.6 x10*3/uL (2.0-8.3); Neutrophils Percent Auto 62.2 % (45-73); Platelet Count 143 X10*3/uL (160-400); Red Blood Count 3.39 X10*6/uL (4.60-5.80); Red Cell Distribution Width 14.6 % (11.0-16.0); White Blood Count 5.8 X10*3/uL (4.8-10.8)
[2022-01-09 07:14] LABS: Anion Gap 13 (12-20); Blood Urea Nitrogen 10 mg/dL (9-16); Calcium 8.2 mg/dL (8.4-10.2); Carbon Dioxide 22 mmol/L (22-29); Chloride 108 mmol/L (96-108); Creatinine Clr Calc Pharmacy 59.4; Estimated Glomerular Filt Rate > 60; Glucose Random 166 mg/dL (60-115); Potassium 4.3 mmol/L (3.3-5.1); Sodium 139 mmol/L (135-145)
[2022-01-09 07:18] LABS: Glucose, Whole Blood 153 mg/dL (60-115)
[2022-01-09] MEDS: Escitalopram Oxalate 5 MG TABLET PO (07:46)
[2022-01-09] MEDS: Ferrous Sulfate 324 MG TABLET.DR PO (07:46)
[2022-01-09] MEDS: Gabapentin 300 MG CAPSULE PO ×3 (07:47→20:17)
[2022-01-09] MEDS: metFORMIN HCl ER 500 MG TAB.ER.24H PO ×2 (07:47→20:18)
[2022-01-09] MEDS: Acyclovir 200 MG CAPSULE 400 MG PO ×2 (07:47→20:19)
[2022-01-09] MEDS: Finasteride 5 MG TABLET PO (07:52)
[2022-01-09] MEDS: Insulin Lispro 100 UNIT/ML 3 ML VIAL 6 UNIT SUBCUT (07:55)
[2022-01-09 08:00] VITALS: BP 143/74; PULSE 65; RESP 14; TEMP 36; O2SAT 92
--- NOTE | 2022-01-09 08:52 | P.CDIC_ITS ---
CDI Concurrent Query Documentation Clarification: PHYSICIAN'S DOCUMENTATION REQUEST Date of Query: 01/09/22 0852 Patient Name: Asad Holcomb Admit Date: 01/08/22 Dear Doctor, A review of the medical record indicates additional documentation may be needed. Please review below and update the documentation accordingly. Clinical Indicators: Risk Factors/Clinical Indicators/Treatments H&P: Dementia, patient is agitated, screaming at times, pulling off the NC due to his agitation, refusing to take medications. Zyprexa. If possible, please further clarify type of Dementia and any associated manifestations: Disease Type: Vascular, Senile, Alzheimers etc. with: Associated Manifestations: * Dementia without behavioral disturbance * Dementia with behavioral disturbance * Aggressive behavior * Combative behavior * No associated manifestations * Other ? please specify * Unable to determine Use of terms such as suspected, likely, concern for, or probable (associated with a specific diagnosis that is being evaluated, monitored, or treated as if it exists) are acceptable and can be coded in the inpatient setting, when documented at the time of discharge. Thank you, Jess Mckenan [facility], CDIS Extension: [phone] Please use your independent medical judgment in providing your response. THIS QUERY IS PART OF THE PERMANENT MEDICAL RECORD Provider Response: Other Other Diagnosis: Dementia with behavioral disturbance, unknown type
--- NOTE | 2022-01-09 08:58 | P.CDIC_ITS ---
CDI Concurrent Query Documentation Clarification: PHYSICIAN'S DOCUMENTATION REQUEST Date of Query: 01/09/22 0858 Patient Name: Asad Holcomb Admit Date: 01/08/22 Dear Doctor, A review of the medical record indicates additional documentation may be needed. Please review below and update the documentation accordingly. Clinical Indicators: The following diagnoses or signs and symptoms were noted in the patient record: Risk Factors/Clinical Indicators/Treatments H&P: Dx: COPD, acute Acute hypoxic respiratory failure/COPD in the setting of aspiration pna and COPD. O2, IV Solumedrol. Based on the above, could you clarify in the Progress Notes the appropriate diagnosis, if significant, that supports the above abnormalities and additional evaluation, monitoring, and/or treatment rendered: * Chronic obstructive pulmonary disease * Chronic obstructive pulmonary disease exacerbation * Other (please specify) * Unable to determine Use of terms such as suspected, likely, concern for, or probable (associated with a specific diagnosis that is being evaluated, monitored, or treated as if it exists) are acceptable and can be coded in the inpatient setting, when documented at the time of discharge. Thank you, Jess Mckenna [facility], CDIS Extension: [phone] Please use your independent medical judgment in providing your response. THIS QUERY IS PART OF THE PERMANENT MEDICAL RECORD Provider Response: COPD Exacerbation
--- NOTE | 2022-01-09 09:49 | HO.PM.IMPN ---
Subjective Subjective Date of Service: 01/09/22 <CLAUDETTE Nguyen - Last Filed: 01/09/22 12:23> 01/10/22 <Param David MD - Last Filed: 01/10/22 08:14> Interval History: Patient seen for follow-up on aspiration pneumonia with acute hypoxemic respiratory failure and metabolic encephalopathy. Patient remains confused at times but pleasant. He is able to answer basic questions on how he is feeling and is alert and oriented. He reports feeling well but does not understand why he is in the hospital. Nursing staff report several episodes of ourbursts overnight, easily redirected. <CLAUDETTE Nguyen - Last Filed: 01/09/22 12:23> Review of Systems Resp: No sob or cough Card: No chest pain Neuro: +confused <CLAUDETTE Nguyen - Last Filed: 01/09/22 12:23> Review of Systems: Yes all other systems are reviewed and are negative <CLAUDETTE Nguyen - Last Filed: 01/09/22 12:23> Physical Exam Vital Signs: Vital Signs: Last Vital Signs Temp 96.8 F 01/09/22 08:00 Pulse 65 01/09/22 08:00 Resp 14 01/09/22 08:00 BP 143/74 H 01/09/22 08:00 Pulse Ox 92 01/09/22 08:00 O2 Del Method 01/09/22 08:00 O2 Flow Rate 2 01/08/22 23:11 Oxygen Flow Rate 2 01/08/22 08:47 BMI result Body Mass Index 26.2 <CLAUDETTE Nguyen - Last Filed: 01/09/22 12:23> Constitutional - Awake and Alert, No apparent distress Eyes - PERRLA, EOMI Cardiovascular - S1S2, RRR, No edema Respiratory - Diffuse crackles bialterally. Normal lung expansion, Normal respiratory effort, No respiratory distress Gastrointestinal - NT / ND; +BS; No rebound or guarding Extremities - no calf tenderness bilaterally, no swelling Skin - Warm/Dry. Well healing ecchymotic lesion lateral RLE Neurological - Alert & oriented x3. Lucid at times, otherwise pleasantly confused, CN II-XII intact. 5/5 strength BUE and BLE Psychological - Normal affect <CLAUDETTE Nguyen - Last Filed: 01/09/22 12:23> Objective Data Active Medications Acyclovir (Acyclovir 200 Mg Capsule) 400 mg PO BID [facility] Last Admin: 01/09/22 07:47 Dose: 400 mg Documented By: NITISH Enoxaparin Sodium (Enoxaparin Sodium 40 Mg/0.4 Ml Syringe) 40 mg SUBCUT Q24H [facility] Last Admin: 01/08/22 18:46 Dose: 40 mg Documented By: GAMAL Escitalopram Oxalate (Escitalopram Oxalate 5 Mg Tablet) 5 mg PO DAILY [facility] Last Admin: 01/09/22 07:46 Dose: 5 mg Documented By: NITISH Ferrous Sulfate (Ferrous Sulfate 324 Mg Tablet.Dr) 324 mg PO DAILY [facility] Last Admin: 01/09/22 07:46 Dose: 324 mg Documented By: NITISH Finasteride (Finasteride 5 Mg Tablet) 5 mg PO DAILY [facility] Last Admin: 01/09/22 07:52 Dose: 5 mg Documented By: NITISH Gabapentin (Gabapentin 300 Mg Capsule) 300 mg PO TID [facility] Last Admin: 01/09/22 07:47 Dose: 300 mg Documented By: NITISH Sodium Chloride (Ns) 1,000 mls @ 100 mls/hr IVCONT .Q10H [facility] Last Admin: 01/09/22 04:01 Dose: 100 mls/hr Documented By: BRITTANY Insulin Glargine (Insulin Glargine,Hum.Rec.Anlog 100 Unit/Ml 10 Ml Vial) 15 unit SUBCUT DAILY@1999 [facility] Last Admin: 01/08/22 20:54 Dose: Not Given Documented By: SALVADOR Non-Admin Reason: Physician Held Med Loperamide HCl (Loperamide Hcl 2 Mg Capsule) 2 mg PO TID PRN PRN Reason: Diarrhea Loratadine (Loratadine 10 Mg Tablet) 10 mg PO DAILY PRN PRN Reason: Allergic Symptoms Metformin HCl (Metformin Hcl Er 500 Mg Tab.Er.24h) 500 mg PO BID [facility] Last Admin: 01/09/22 07:47 Dose: 500 mg Documented By: NITISH Methylprednisolone Sodium Succinate (Methylprednisolone Sod Succ 40 Mg/Ml Vial) 40 mg IVPUSH Q6H [facility] Last Admin: 01/09/22 04:27 Dose: 40 mg Documented By: BRITTANY Non-Formulary Medication (Umeclidinium [Incruse Ellipta]) 1 puff INHALE DAILY [facility] Omeprazole (Omeprazole 20 Mg Capsule.Dr) 20 mg PO DAILY@629 [facility] Last Admin: 01/09/22 06:04 Dose: 20 mg Documented By: NANCY Pharmacy Consult (Consult Rx Perform Med Rec) 1 each MISCELLANE ONCE PRN PRN Reason: Consult order Potassium Chloride (Potassium Chloride Er 10 Meq Capsule.Er) 10 meq PO DAILY [facility] Last Admin: 01/09/22 07:46 Dose: 10 meq Documented By: NITISH Pravastatin Sodium (Pravastatin Sodium 40 Mg Tablet) 40 mg PO DAILY@1999 [facility] Last Admin: 01/08/22 20:43 Dose: 40 mg Documented By: SALVADOR Senna (Sennosides 8.6 Mg Tablet) 8.6 mg PO BEDTIME PRN PRN Reason: Constipation Tamsulosin HCl (Tamsulosin Hcl 0.4 Mg Capsule) 0.4 mg PO DAILY@1999 [facility] Last Admin: 01/08/22 20:43 Dose: 0.4 mg Documented By: SALVADOR <CLAUDETTE Nguyen - Last Filed: 01/09/22 12:23> Labs CBC & Chem 7: : 01/09/22 15:27 01/09/22 05:14 <CLAUDETTE Nguyen - Last Filed: 01/09/22 12:23> Labs: Laboratory Results - last 24 hr 01/08/22 01/08/22 01/08/22 09:11 09:51 11:59 MCV MCH MCHC RDW Plt Count MPV Immature Gran % (Auto) 0.2 Neut % (Auto) 53.9 Lymph % (Auto) 23.6 [place] % (Auto) 19.7 H Eos % (Auto) 1.7 Baso % (Auto) 0.9 Lymph # (Auto) 2.3 [place] # (Auto) 1.9 H Eos # (Auto) 0.2 Baso # (Auto) 0.1 Abs Immat Gran (auto) 0.02 Absolute Neuts (auto) 5.3 Absolute Nucleated RBC 0.000 Nucleated RBC % (auto) 0.0 Smear Tech's Comments VERIFIED D-Dimer High Sensitivty VBG pH VBG pCO2 VBG pO2 VBG HCO3 VBG O2 Saturation VBG Base Excess Anion Gap Estim Creat Clear Calc Estimated GFR POC Glucose 87 Random Glucose Lactic Acid Calcium Urine Color YELLOW Urine Appearance HAZY Urine pH 5.5 Ur Specific [place] 1.015 Urine Protein NEG Urine Glucose (UA) NEG Urine Ketones NEG Urine Blood 3+ H Urine Nitrite NEG Ur Leukocyte Esterase NEG Urine RBC 50-75 H Urine WBC 0-2 Ur Squamous Epith Cells TRACE Urine Bacteria NONE 01/08/22 01/08/22 01/08/22 13:06 14:39 14:39 MCV MCH MCHC RDW Plt Count MPV Immature Gran % (Auto) Neut % (Auto) Lymph % (Auto) [place] % (Auto) Eos % (Auto) Baso % (Auto) Lymph # (Auto) [place] # (Auto) Eos # (Auto) Baso # (Auto) Abs Immat Gran (auto) Absolute Neuts (auto) Absolute Nucleated RBC Nucleated RBC % (auto) Smear Tech's Comments D-Dimer High Sensitivty 545 VBG pH VBG pCO2 VBG pO2 VBG HCO3 VBG O2 Saturation VBG Base Excess Anion Gap Estim Creat Clear Calc Estimated GFR POC Glucose 97 Random Glucose Lactic Acid 2.0 Calcium Urine Color Urine Appearance Urine pH Ur Specific [place] Urine Protein Urine Glucose (UA) Urine Ketones Urine Blood Urine Nitrite Ur Leukocyte Esterase Urine RBC Urine WBC Ur Squamous Epith Cells Urine Bacteria 01/08/22 01/08/22 01/09/22 14:47 20:24 05:14 MCV 98.5 H MCH 32.4 MCHC 32.9 RDW 14.6 Plt Count 143 L MPV 10.1 Immature Gran % (Auto) 0.5 H Neut % (Auto) 62.2 Lymph % (Auto) 33.4 [place] % (Auto) 3.1 Eos % (Auto) 0.3 Baso % (Auto) 0.5 Lymph # (Auto) 2.0 [place] # (Auto) 0.2 Eos # (Auto) 0.0 Baso # (Auto) 0.0 Abs Immat Gran (auto) 0.03 Absolute Neuts (auto) 3.6 Absolute Nucleated RBC 0.000 Nucleated RBC % (auto) 0.0 Smear Tech's Comments D-Dimer High Sensitivty VBG pH 7.40 VBG pCO2 45 VBG pO2 37 VBG HCO3 28 H VBG O2 Saturation 45.0 VBG Base Excess 3.4 Anion Gap Estim Creat Clear Calc Estimated GFR POC Glucose 97 Random Glucose Lactic Acid Calcium Urine Color Urine Appearance Urine pH Ur Specific [place] Urine Protein Urine Glucose (UA) Urine Ketones Urine Blood Urine Nitrite Ur Leukocyte Esterase Urine RBC Urine WBC Ur Squamous Epith Cells Urine Bacteria 01/09/22 01/09/22 05:14 07:09 MCV MCH MCHC RDW Plt Count MPV Immature Gran % (Auto) Neut % (Auto) Lymph % (Auto) [place] % (Auto) Eos % (Auto) Baso % (Auto) Lymph # (Auto) [place] # (Auto) Eos # (Auto) Baso # (Auto) Abs Immat Gran (auto) Absolute Neuts (auto) Absolute Nucleated RBC Nucleated RBC % (auto) Smear Tech's Comments D-Dimer High Sensitivty VBG pH VBG pCO2 VBG pO2 VBG HCO3 VBG O2 Saturation VBG Base Excess Anion Gap 13 Estim Creat Clear Calc 59.4 Estimated GFR > 60 POC Glucose 153 H Random Glucose 166 H D Lactic Acid Calcium 8.2 L Urine Color Urine Appearance Urine pH Ur Specific [place] Urine Protein Urine Glucose (UA) Urine Ketones Urine Blood Urine Nitrite Ur Leukocyte Esterase Urine RBC Urine WBC Ur Squamous Epith Cells Urine Bacteria <CLAUDETTE Nguyen - Last Filed: 01/09/22 12:23> Assessment and Plan (1) Acute hypoxemic respiratory failure: Status: Acute <CLAUDETTE Nguyen - Last Filed: 01/09/22 12:23> (2) Aspiration pneumonia of both lungs: Status: Acute <CLAUDETTE Nguyen - Last Filed: 01/09/22 12:23> (3) Metabolic encephalopathy: Status: Acute <CLAUDETTE Nguyen - Last Filed: 01/09/22 12:23> (4) Dementia: Status: Acute <CLAUDETTE Nguyen - Last Filed: 01/09/22 12:23> (5) COPD exacerbation: Status: Acute <CLAUDETTE Nguyen - Last Filed: 01/09/22 12:23> Assessment and Plan: Patient is an 86-year-old male with past medical history significant for coronary artery disease s/p CABG x4, sick sinus syndrome s/p pacer, idiopathic pulmonary fibrosis, COPD, uncontrolled type 2 diabetes, hypertension, BPH, GERD, and dementia who resides at [facility] admitted with aspiration pneumonia with hypoxia and metabolic encephalopathy. 1- Acute hypoxemic respiratory failure due to aspiration Pneumonia and underlying pulmonary fibrosis, COPD with acute exacerbation -Continue supplemental O2 to maintain oxygen levels 90-92% -IV steroid -Bronchodilators by Neb -Continue maintenance inhaler 2-Aspiration pneumonia- clinically improving -At risk for multi-drug resistant bacteria given recent hospital admission as well as COPD/IPF. Continue IV zosyn D2 -Continue oxygen as above -Swallow eval completed. Regular diabetic diet with thin liquids 3-Metabolic encephalopathy -Increased aggitation from baseline dementia per discussion with [facility] staff. Likely secondary to infection and hypoxia -Outbursts/aggitation have improved -Received dose of zyprexa in ED to control agitation 4-Hematuria -3+ blood on urinalysis -Urine culture to r/o UTI 5. Dementia, unknown typic with behavior disturbance -Increased aggitation from baseline r/t metabolic encephalopathy as above 6- Type 2 diabetes- uncontrolled -Resume insulin -Continue metformin -Monitor POC glucose 7-HTN- stable -Not on antihypertensives. Monitor 8-GERD -Continue omeprazole 9-BPH -Continue tamsulosin and finasteride DVT prophylaxis- lovenox Full code based on [facility] 09/2021. Patient unable to confirm code status based on mental status. HCP is daughter. Patient requires ongoing inpatient care based on ongoing acute mental status changes likely secondary to infection and IV antibiotics for management of aspiration pneumonia with acute hypoxia. <CLAUDETTE Nguyen - Last Filed: 01/09/22 12:23> Quality Stroke Does the patient have a stroke diagnosis?: No <CLAUDETTE Nguyen - Last Filed: 01/09/22 12:23> VTE Prior VTE?: No <CLAUDETTE Nguyen - Last Filed: 01/09/22 12:23> VTE Risk Level:: Medical - moderate - high <CLAUDETTE Nguyen - Last Filed: 01/09/22 12:23> VTE Device Contraindication: Treatment Not Indicated <CLAUDETTE Nguyen - Last Filed: 01/09/22 12:23> VTE Drug Contraindication: N/A - Med Ordered <CLAUDETTE Nguyen - Last Filed: 01/09/22 12:23>
[2022-01-09 10:55] VITALS: BP 148/70; PULSE 68; RESP 16; TEMP 36.2; O2SAT 92
[2022-01-09 11:08] LABS: Glucose, Whole Blood 140 mg/dL (60-115)
--- NOTE | 2022-01-09 11:15 | MHC.CM.PN ---
IMM addressed with patient's daughter/HCP Pebbles Pike ([phone]). Per Pebbles's request IMM original mailed to other daughter/HCP Diane Kilpatrickt at [address] [place] [address], [place] [address]. IMM addendum completed. Patient resides at [facility] and discharge goal is return to [facility] via BLS ambulance. Patient vax'd x3, PCP is Derek Kurtz. HCP and Molst forms on file.
--- NOTE | 2022-01-09 11:24 | MHC.SL.SWA ---
Speech Pathologist Impression: Risk of Aspiration Due to: History of Pneumonia Dysphasia Diet Status: Liquid Consistency and Strategies for Safe Swallow: Liquid Intake Recommendation: Thin Liquid Intake Strategies: Small Sips Solid Food Consistency: Dietary Recommendations: Regular Additional Modifications to Solid Foods: Alternate liquids and solids to clear residual on dentures. Patient is fully independent, able to feed self without difficulty. Oral Medication Intake: Whole with Puree Please contact the pharmacy regarding appropriate crushable or liquid drug formulations that are available whenever modified delivery is recommended. Compensatory Strategies and Precautions to be Taken for Safe Swallow: Sitting Upright (90 deg) Liquids from Cup Liquids from Straw Small Bites and Sips Alternate Liquids/Solids Supervision While Eating and Drinking for Safe Swallow: None Needed Foods to Avoid: Difficult to chew solids, due to dentures. Swallowing Recommended Treatments: Compens. Strategy Educat. Recommendation for Speech: NA:Typical Evaluation Comment: Patient presents with all aspects of oral motor function WFL, however is edentulous/wears dentures; All aspects of oral and pharyngeal phase of swallow WFL, no clinical signs of aspiration on any consistency. Pt has hx GERD, should remain in upright seated position after meals for at least 60 minutes to eliminate risk of micro-aspiration. Recommend Regular Diet with thin liquids, no restrictions on diet textures. Patient reports that he habitually takes pills whole with puree, which is appropriate. MD, Dietitian, Nursing notified of recommendation by secure text. DIRECT SUPPORT STAFF MEMBER will follow up X1 to assure toleration of recommended diet. Frequency/Duration: F/U X1 Date Range for Service Req: Timeline to reassess: Job Press Feeder Clinican/Clinical Fellow: No Supervisory Statement: I have reviewed and agree with the student/clinical fellow's documentation: N/A Speech Language Pathologist: Josefina Rae M.A., [facility]-DIRECT SUPPORT STAFF MEMBER
[2022-01-09 15:37] VITALS: BP 128/69; PULSE 65; RESP 18; TEMP 36.8; O2SAT 85
[2022-01-09 15:42] LABS: Hematocrit 34.8 % (42.0-52.0); Hemoglobin 11.3 g/dl (14.0-18.0); Mean Corpuscular HGB Conc 32.5 g/dl (31.0-36.0); Mean Corpuscular Hemoglobin 32.5 pg (27.0-33.0); Mean Platelet Volume 10.1 fL (9.4-12.4); Platelet Count 155 X10*3/uL (160-400); Red Blood Count 3.48 X10*6/uL (4.60-5.80); Red Cell Distribution Width 14.9 % (11.0-16.0); White Blood Count 9.8 X10*3/uL (4.8-10.8)
[2022-01-09 16:26] LABS: Glucose, Whole Blood 237 mg/dL (60-115)
[2022-01-09] MEDS: Insulin Lispro 100 UNIT/ML 3 ML VIAL SUBCUT (16:49)
[2022-01-09 19:07] VITALS: BP 128/60; PULSE 65; RESP 17; TEMP 36.3; O2SAT 92
[2022-01-09 20:07] LABS: Glucose, Whole Blood 170 mg/dL (60-115)
[2022-01-09] MEDS: Tamsulosin HCL 0.4 MG CAPSULE PO (20:18)
[2022-01-09] MEDS: OLANZapine 10 MG VIAL 5 MG IM (20:19)
[2022-01-09] MEDS: Pravastatin Sodium 40 MG TABLET PO (20:19)
[2022-01-09] MEDS: Insulin Glargine,Hum.rec.anlog 100 UNIT/ML 10 ML VIAL 15 UNIT SUBCUT (20:22)
[2022-01-10] VITALS (9 sets, daily range): BP systolic 118–162; BP diastolic 63–91; PULSE 65–69; RESP 16–22; TEMP 36–36.9; O2SAT 91–99
[2022-01-10] MEDS: methylPREDNISolone Sod Succ 40 MG/ML VIAL IVPUSH ×4 (04:41→22:05)
[2022-01-10] MEDS: Omeprazole 20 MG CAPSULE.DR PO (05:03)
[2022-01-10 07:57] LABS: Glucose, Whole Blood 165 mg/dL (60-115)
[2022-01-10] MEDS: 0.9 % Sodium Chloride 1,000 ML 100 ML IVCONT (08:44)
[2022-01-10] MEDS: Finasteride 5 MG TABLET PO (08:45)
[2022-01-10] MEDS: Escitalopram Oxalate 5 MG TABLET PO (08:45)
[2022-01-10] MEDS: metFORMIN HCl ER 500 MG TAB.ER.24H PO ×2 (08:45→19:58)
[2022-01-10] MEDS: Ferrous Sulfate 324 MG TABLET.DR PO (08:45)
[2022-01-10] MEDS: Acyclovir 200 MG CAPSULE 400 MG PO ×2 (08:45→19:58)
[2022-01-10] MEDS: Gabapentin 300 MG CAPSULE PO ×3 (08:45→19:58)
[2022-01-10] MEDS: Insulin Lispro 100 UNIT/ML 3 ML VIAL SUBCUT ×2 (08:45→17:04)
[2022-01-10] MEDS: Amoxicillin/Potassium Clav 875 MG TABLET PO ×2 (09:39→19:50)
--- NOTE | 2022-01-10 11:25 | MHC.CM.PN ---
Addendum entered by Gayle Delcid 01/11/22 11:51: PT DID NOT DC YESTERDAY DUE TO LACK OF AMBULANCE AVAILABILITY TO TRANSPORT. OVERNIGHT, PT REPORTEDLY BECAME INCREASINGLY AGITATED PT NO LONGER CLEAR TO DC DBV AND [facility] INFORMED VIA [facility] DAUGHTER WAS INFORMED SHE WOULD BE CONTACTED WHEN TRANSPORT TIME WAS KNOWN Addendum entered by Gayle Delcid 01/10/22 11:51: CM CALLED PTS DAUGHTER/ALTERNATE HCP, ROSA [phone] AND INFORMED HER OF INTENT TO DC. SHE REPORTS HER SISTER, ADEBAYO, IS LISTED THE PRIMARY PROXY HOWEVER HAS NOT BEEN INVOLVED. SHE REPORTS NEITHER OF HER SISTERS HELP IN ANY WAY AND SHE IS QUITE STRESSED SHE REPORTS SHE DOES NOT KNOW WHAT TO DO AT THE SNF BECAUSE THEY ARE NOT DOING THE THINGS SHE THINKS ARE NECESSARY TO HELP HER FATHER GET BETTER. AFTER DISCUSSION, CM SUGGESTED SHE ADDRESS HER CONCERNS AT THE TEAM MEETING WITH SNF STAFF SHE INDICATED WAS SCHEDULED FOR THIS WEDNESDAY. ROSA IS AWARE TRANSPORT FOR THE PT WAS REQUESTED FOR 1400 HOURS HOWEVER AMBULANCES ARE UNAVAILABLE AT THIS TIME SHE WAS INFORMED TRANSPORT WITH AN ALTERNATE AMBULANCE COMPANY WAS BEING SOUGHT HOWEVER NOT GUARANTEED SHE REPORTS SHE MAY COME TO VISIT THE PT HERE BUT WILL CALL FIRST TO ENSURE HE HAS NOT LEFT FOR DBV Original Note: PT CLEARED TO DC TODAY BACK TO [facility] VM MESSAGE LEFT FOR DAUGHTER/PRIMARY HCP, WILDER [phone] INFORMING HER OF INTENT TO DC AND PROVIDING CONTACT SHOULD SHE HAVE ANY QUESTIONS BLS TRANSPORT REQUESTED FOR 1400 HOURS WITH [facility]
[2022-01-10 11:29] LABS: Glucose, Whole Blood 138 mg/dL (60-115)
--- NOTE | 2022-01-10 12:50 | P.PNIM_ITS ---
Subjective Subjective Date of Service: 01/10/22 Interval History: f/u on encephlopathy, hypoxic resp failure doing well, occasional takes off O2 and desat and becomes confused Review of Systems Resp: No sob or cough Card: No chest pain Neuro: +confused Physical Exam Vital Signs: Vital Signs: Last Vital Signs Temp 98.5 F 01/10/22 11:50 Pulse 67 01/10/22 11:50 Resp 19 01/10/22 11:50 BP 140/75 H 01/10/22 11:50 Pulse Ox 98 01/10/22 11:50 O2 Del Method 01/10/22 11:50 O2 Flow Rate 4 01/10/22 11:50 Oxygen Flow Rate 2 01/08/22 08:47 BMI result Body Mass Index 26.2 Objective Data Active Medications Acyclovir (Acyclovir 200 Mg Capsule) 400 mg PO BID [facility] Last Admin: 01/10/22 08:45 Dose: 400 mg Documented By: MICHAEL Amoxicillin/Clavulanate Potassium (Amoxicillin/Potassium Clav 875 Mg Tablet) 875 mg PO Q12H [facility] Last Admin: 01/10/22 09:39 Dose: 875 mg Documented By: MICHAEL Escitalopram Oxalate (Escitalopram Oxalate 5 Mg Tablet) 5 mg PO DAILY [facility] Last Admin: 01/10/22 08:45 Dose: 5 mg Documented By: MICHAEL Ferrous Sulfate (Ferrous Sulfate 324 Mg Tablet.) 324 mg PO DAILY [facility] Last Admin: 01/10/22 08:45 Dose: 324 mg Documented By: MICHAEL Finasteride (Finasteride 5 Mg Tablet) 5 mg PO DAILY [facility] Last Admin: 01/10/22 08:45 Dose: 5 mg Documented By: MICHAEL Gabapentin (Gabapentin 300 Mg Capsule) 300 mg PO TID [facility] Last Admin: 01/10/22 08:45 Dose: 300 mg Documented By: MICHAEL Sodium Chloride (Ns) 1,000 mls @ 100 mls/hr IVCONT .Q10H [facility] Last Admin: 01/10/22 08:44 Dose: 100 mls/hr Documented By: MICHAEL Insulin Glargine (Insulin Glargine,Hum.Rec.Anlog 100 Unit/Ml 10 Ml Vial) 15 unit SUBCUT DAILY@1999 [facility] Last Admin: 01/09/22 20:22 Dose: 15 unit Documented By: SHERRI Insulin Human Lispro (Insulin Lispro 100 Unit/Ml 3 Ml Vial) 0 unit SUBCUT TIDAC [facility]; Protocol Last Admin: 01/10/22 11:35 Dose: Not Given Documented By: MICHAEL Non-Admin Reason: No Insulin Coverage Loperamide HCl (Loperamide Hcl 2 Mg Capsule) 2 mg PO TID PRN PRN Reason: Diarrhea Loratadine (Loratadine 10 Mg Tablet) 10 mg PO DAILY PRN PRN Reason: Allergic Symptoms Metformin HCl (Metformin Hcl Er 500 Mg Tab.Er.24h) 500 mg PO BID [facility] Last Admin: 01/10/22 08:45 Dose: 500 mg Documented By: MICHAEL Methylprednisolone Sodium Succinate (Methylprednisolone Sod Succ 40 Mg/Ml Vial) 40 mg IVPUSH Q6H [facility] Last Admin: 01/10/22 09:39 Dose: 40 mg Documented By: MICHAEL Non-Formulary Medication (Umeclidinium [Incruse Ellipta]) 1 puff INHALE DAILY [facility] Omeprazole (Omeprazole 20 Mg Capsule.Dr) 20 mg PO DAILY@629 [facility] Last Admin: 01/10/22 05:03 Dose: 20 mg Documented By: SHERRI Pharmacy Consult (Consult Rx Perform Med Rec) 1 each MISCELLANE ONCE PRN PRN Reason: Consult order Potassium Chloride (Potassium Chloride Er 10 Meq Capsule.Er) 10 meq PO DAILY [facility] Last Admin: 01/10/22 08:45 Dose: 10 meq Documented By: MICHAEL Pravastatin Sodium (Pravastatin Sodium 40 Mg Tablet) 40 mg PO DAILY@1999 [facility] Last Admin: 01/09/22 20:19 Dose: 40 mg Documented By: SHERRI Senna (Sennosides 8.6 Mg Tablet) 8.6 mg PO BEDTIME PRN PRN Reason: Constipation Tamsulosin HCl (Tamsulosin Hcl 0.4 Mg Capsule) 0.4 mg PO DAILY@1999 [facility] Last Admin: 01/09/22 20:18 Dose: 0.4 mg Documented By: SHERRI Labs CBC & Chem 7: 01/09/22 15:27 01/09/22 05:14 Labs: Laboratory Results - last 24 hr 01/09/22 01/09/22 01/09/22 15:27 15:32 19:13 MCV 100.0 H MCH 32.5 MCHC 32.5 RDW 14.9 Plt Count 155 L MPV 10.1 Absolute Nucleated RBC 0.000 Nucleated RBC % (auto) 0.0 POC Glucose 237 H 170 H 01/10/22 01/10/22 07:53 11:18 MCV MCH MCHC RDW Plt Count MPV Absolute Nucleated RBC Nucleated RBC % (auto) POC Glucose 165 H 138 H Microbiology Microbiology Results: Microbiology 01/08/22 14:48 Blood Culture - Preliminary Blood - Venous No growth after 24 hours. 01/08/22 14:39 Blood Culture - Preliminary Blood - Venous No growth after 24 hours. Assessment and Plan (1) Acute hypoxemic respiratory failure: Status: Acute (2) Aspiration pneumonia of both lungs: Status: Acute (3) Metabolic encephalopathy: Status: Acute (4) Dementia: Status: Acute (5) COPD exacerbation: Status: Acute Plan Patient is an 86-year-old male with past medical history significant for coronary artery disease s/p CABG x4, sick sinus syndrome s/p pacer, idiopathic pulmonary fibrosis, COPD, uncontrolled type 2 diabetes, hypertension, BPH, GERD, and dementia who resides at [facility] admitted with aspiration pneumonia with hypoxia and metabolic encephalopathy. 1- Acute hypoxemic respiratory failure due to aspiration Pneumonia and underlying pulmonary fibrosis, COPD with acute exacerbation -Continue supplemental O2 to maintain oxygen levels 90-92% -IV steroid to PO prednisone -Bronchodilators by Neb r 2-Aspiration pneumonia-improved, change to oral Augmentin 3-Metabolic d/t hypoxica, at baseline 4-Hematuria--urine is presently clear, observe 5. Dementia, unknown typic with behavior disturbance -Increased aggitation from baseline r/t metabolic encephalopathy as above 6- Type 2 diabetes- ssi, metformin 7-HTN- stable -Not on antihypertensives. Monitor 8-GERD -Continue omeprazole 9-BPH -Continue tamsulosin and finasteride DVT prophylaxis- lovenox Full code based on MOLST 09/2021. Patient unable to confirm code status based on mental status. HCP is daughter. Patient requires ongoing inpatient care based on ongoing acute mental status changes likely secondary to infection and IV antibiotics for management of aspiration pneumonia with acute hypoxia. Dispo: dc later today if no issue with transportation Quality Stroke Does the patient have a stroke diagnosis?: No VTE Prior VTE?: No VTE Risk Level:: Medical - moderate - high VTE Device Contraindication: Treatment Not Indicated VTE Drug Contraindication: N/A - Med Ordered
[2022-01-10 17:15] LABS: Glucose, Whole Blood 167 mg/dL (60-115)
[2022-01-10] MEDS: Pravastatin Sodium 40 MG TABLET PO (19:49)
[2022-01-10] MEDS: Tamsulosin HCL 0.4 MG CAPSULE PO (19:50)
[2022-01-10] MEDS: Insulin Glargine,Hum.rec.anlog 100 UNIT/ML 10 ML VIAL 15 UNIT SUBCUT (19:59)
[2022-01-10 20:26] LABS: Glucose, Whole Blood 142 mg/dL (60-115)
[2022-01-10] MEDS: OLANZapine 10 MG VIAL 5 MG IM (22:30)
[2022-01-10] MEDS: Morphine Sulfate 2 MG/ML CARTRIDGE 1 MG IVPUSH (22:30)
[2022-01-11] VITALS (8 sets, daily range): BP systolic 114–152; BP diastolic 66–77; PULSE 62–65; RESP 16–20; TEMP 36.1–36.7; O2SAT 88–98
--- NOTE | 2022-01-11 01:15 | PC.NURSE ---
At 2210 PT became agitated,yelling, taking off O2, trying to get out of bed, throwing items within reach this RN called for assistance and 2 CNAs came to assist along with nurse seismic prospecting supervisor and MD notified, ordered IM Zypreza 5mg, in the meanwhile PT VS were checked and O2 was in 70s, PT put on oxymask with O2 at 10L, PT refusing to keep O2 on grabbing at staff, Respiratory was called, PT still uncooperative, O2 in the 70-80s, R 24. Nurse seismic prospecting supervisor called rapid response, staff trying to keep O2 on PT, ordered 1mg morphine, given at 2230 along with IM zyprexa 5mg. PT O2 up into 90s with help from staff keepimg O2 on PT. AT 2300 PT O2 96% on 10L/ oxymask, R 22. . At 2330 PT T97.4, O2 93/10L on oxymask, BP 118/63, R 22, P65. PT wanted a snack at 2400 and kept pulling off oxymask, [place] applied at 10L, PT O2 93%, PT ate snack and acting appropriate with baseline confusion at times. PT VS currently stable and PT is resting quietly with eyes closed. Nurse will continue to monitor PT and VS.
[2022-01-11] MEDS: methylPREDNISolone Sod Succ 40 MG/ML VIAL IVPUSH (03:23)
--- NOTE | 2022-01-11 06:19 | PM.EVENT ---
Event Note Date of Service: 01/10/22 Event Note: Rapid response note: Rapid response was called for acute hypoxia Patient lung sounds are coarse, no wheezing; patient was placed on OxyMask; patient had an episode of agitation and anxiety likely contributing to hypoxia. Patient has known acute hypoxic respiratory failure in the setting of aspiration pneumonia being treated. Oxygenation improved after OxyMask. Patient was given morphine and Zyprexa for agitation. Will continue to monitor
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
[2022-01-11] MEDS: OLANZapine 10 MG VIAL 2.5 MG IM (08:19)
[2022-01-11 08:24] LABS: Glucose, Whole Blood 172 mg/dL (60-115)
[2022-01-11 09:18] LABS: ABG Base Excess 2.1 mmol/L; ABG HCO3 24 mmol/L (22-26); ABG pCO2 32 mmHg (32-45); ABG pH 7.49 (7.35-7.45); ABG pO2 55 mmHg (83-108)
[2022-01-11] MEDS: Acyclovir 200 MG CAPSULE 400 MG PO ×2 (10:24→19:16)
[2022-01-11] MEDS: Gabapentin 300 MG CAPSULE PO ×3 (10:25→19:17)
[2022-01-11] MEDS: Ferrous Sulfate 324 MG TABLET.DR PO (10:25)
[2022-01-11] MEDS: Amoxicillin/Potassium Clav 875 MG TABLET PO ×2 (10:25→19:17)
[2022-01-11] MEDS: Escitalopram Oxalate 5 MG TABLET PO (10:25)
[2022-01-11] MEDS: Finasteride 5 MG TABLET PO (10:25)
[2022-01-11 11:24] LABS: Hematocrit 34.2 % (42.0-52.0); Mean Corpuscular HGB Conc 32.2 g/dl (31.0-36.0); Mean Corpuscular Hemoglobin 32.2 pg (27.0-33.0); Platelet Count 154 X10*3/uL (160-400); Red Blood Count 3.42 X10*6/uL (4.60-5.80); Red Cell Distribution Width 15.1 % (11.0-16.0); White Blood Count 14.1 X10*3/uL (4.8-10.8)
[2022-01-11 11:31] LABS: Ammonia 19 umol/L (13-55)
[2022-01-11 11:38] LABS: Anion Gap 15 (12-20); Blood Urea Nitrogen 18 mg/dL (9-16); Calcium 8.7 mg/dL (8.4-10.2); Carbon Dioxide 24 mmol/L (22-29); Chloride 106 mmol/L (96-108); Creatinine Clr Calc Pharmacy 61.5; Estimated Glomerular Filt Rate > 60; Glucose Random 161 mg/dL (60-115); Potassium 4.3 mmol/L (3.3-5.1); Sodium 141 mmol/L (135-145)
[2022-01-11 11:50] LABS: ABG Refer to POC result
[2022-01-11 12:11] LABS: Glucose, Whole Blood 171 mg/dL (60-115)
[2022-01-11] MEDS: Insulin Lispro 100 UNIT/ML 3 ML VIAL SUBCUT (12:13)
[2022-01-11] MEDS: Enoxaparin Sodium 40 MG/0.4 ML SYRINGE SUBCUT (12:13)
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
--- NOTE | 2022-01-11 14:28 | PM.PSYCN ---
History of Present Illness Date of Service: 01/21/2022 Chief Complaint: AMS/pneumonia Sources of Information: patient interviewed and chart reviewed HPI Narrative: Patient admitted 01/08/2022 from [facility] [place] with hypoxia associated agitation and aggression. Dose of intermittent agitation at baseline the physical aggression is not baseline. On Lexapro and Zyprexa as needed. Has been noted that when he takes his mask off and desaturates gets confused and agitated. Reports that his memory is bad. Is aware of his age and date of . Aware where he is and the date. Does utilize information board in his room as a prompt. As interview progresses memory impairment become more evident for example had significant difficulty with age of his 3 children. Initially said all this was 59, then said maybe they are 62 few minutes later, having forgotten answered this question minutes before. Feels people in the hospital are going to kill him. Relates this to something happening outside but unsure. Does have some reassurance when this is provided. Talked about getting into a fist fight with the bosses son outside, but unable to elaborate. Attempted to discuss low oxygen levels leading to confusion and perhaps paranoia. He was very skeptical about this but also open to same. Reports feeling safe at [facility]. Reported the of his of 62 years has been really difficult and that this happened within the last 4-6 weeks. Past Psychiatric History: Denied /unclear maybe I have seen somebody Medical Evaluation Reviewed: No Review of Systems Review of Systems As per medical team [facility] Medical History (Updated 01/11/22 @ 14:32 by Alfred Segundo MD) CAD (coronary artery disease) COPD (chronic obstructive pulmonary disease) COPD exacerbation Dementia Diabetes GERD (gastroesophageal reflux disease) HTN (hypertension) Pacemaker SSS (sick sinus syndrome) Surgical History (Updated 01/08/22 @ 16:08 by CLAUDETTE Nguyen) History of permanent cardiac pacemaker placement S/P CABG x 4 Social History: resident at [facility] Diagnostics Vital Signs (24Hr): Vital Signs - 24 hr 01/10/22 15:46 01/10/22 19:09 01/10/22 23:37 Temperature 96.8 F 97.4 F 97.4 F Pulse Rate 69 65 65 Respiratory Rate 20 18 22 H Blood Pressure 143/72 H 130/91 H 118/63 Pulse Oximetry 91 L 91 L 93 Oxygen Delivery Method Nasal Cannula Nasal Cannula Oxymask Oxygen Flow Rate 4 4 10 01/11/22 00:00 01/11/22 01:00 01/11/22 03:53 Temperature 98.1 F Pulse Rate 65 Respiratory Rate 20 20 16 Blood Pressure 114/73 Pulse Oximetry 93 98 98 Oxygen Delivery Method High Flow Nasal Cannula High Flow Nasal Cannula Oxymask Oxygen Flow Rate 8 8 6 01/11/22 08:00 01/11/22 12:00 01/10/22 22:20 Temperature 97.1 F Pulse Rate 64 Respiratory Rate 16 Blood Pressure 139/77 Pulse Oximetry 94 93 Oxygen Delivery Method Shovel Mask Room Air Nasal Cannula Oxygen Flow Rate 15 BMI result Body Mass Index 26.2 Labs Results: 01/11/22 11:18 01/11/22 11:18 Labs: Laboratory Results - last 48 hr 01/09/22 01/09/22 01/09/22 15:27 15:32 19:13 WBC 9.8 RBC 3.48 L Hgb 11.3 L Hct 34.8 L MCV 100.0 H MCH 32.5 MCHC 32.5 RDW 14.9 Plt Count 155 L MPV 10.1 Absolute Nucleated RBC 0.000 Nucleated RBC % (auto) 0.0 O2 Saturation ABG pH at Pt Temp ABG pCO2 at Pt Temp ABG pO2 at Pt Temp ABG HCO3 ABG Base Excess (Actual) Sodium Potassium Chloride Carbon Dioxide Anion Gap BUN Creatinine Estim Creat Clear Calc Estimated GFR POC Glucose 237 H 170 H Random Glucose Calcium Ammonia 01/10/22 01/10/22 01/10/22 07:53 11:18 16:54 WBC RBC Hgb Hct MCV MCH MCHC RDW Plt Count MPV Absolute Nucleated RBC Nucleated RBC % (auto) O2 Saturation ABG pH at Pt Temp ABG pCO2 at Pt Temp ABG pO2 at Pt Temp ABG HCO3 ABG Base Excess (Actual) Sodium Potassium Chloride Carbon Dioxide Anion Gap BUN Creatinine Estim Creat Clear Calc Estimated GFR POC Glucose 165 H 138 H 167 H Random Glucose Calcium Ammonia 01/10/22 01/11/22 01/11/22 19:54 08:06 09:12 WBC RBC Hgb Hct MCV MCH MCHC RDW Plt Count MPV Absolute Nucleated RBC Nucleated RBC % (auto) O2 Saturation 87.0 ABG pH at Pt Temp 7.49 H ABG pCO2 at Pt Temp 32 ABG pO2 at Pt Temp 55 L ABG HCO3 24 ABG Base Excess (Actual) 2.1 Sodium Potassium Chloride Carbon Dioxide Anion Gap BUN Creatinine Estim Creat Clear Calc Estimated GFR POC Glucose 142 H 172 H Random Glucose Calcium Ammonia 01/11/22 01/11/22 01/11/22 11:15 11:18 11:18 WBC 14.1 H RBC 3.42 L Hgb 11.0 L Hct 34.2 L MCV 100.0 H MCH 32.2 MCHC 32.2 RDW 15.1 Plt Count 154 L MPV 10.0 Absolute Nucleated RBC 0.000 Nucleated RBC % (auto) 0.0 O2 Saturation ABG pH at Pt Temp ABG pCO2 at Pt Temp ABG pO2 at Pt Temp ABG HCO3 ABG Base Excess (Actual) Sodium 141 Potassium 4.3 Chloride 106 Carbon Dioxide 24 Anion Gap 15 BUN 18 H D Creatinine 0.82 Estim Creat Clear Calc 61.5 Estimated GFR > 60 POC Glucose 171 H Random Glucose 161 H Calcium 8.7 D Ammonia 01/11/22 11:18 WBC RBC Hgb Hct MCV MCH MCHC RDW Plt Count MPV Absolute Nucleated RBC Nucleated RBC % (auto) O2 Saturation ABG pH at Pt Temp ABG pCO2 at Pt Temp ABG pO2 at Pt Temp ABG HCO3 ABG Base Excess (Actual) Sodium Potassium Chloride Carbon Dioxide Anion Gap BUN Creatinine Estim Creat Clear Calc Estimated GFR POC Glucose Random Glucose Calcium Ammonia 19 Imaging Radiology Impressions: ITS Impressions Chest X-Ray 01/08/22 09:17 IMPRESSION: This is an abnormal chest radiograph. No comparison exams available to determine chronicity of abnormalities. Peribronchial cuffing and patchy pulmonary opacities could represent edema or infectious/inflammatory changes. Chest CT 01/08/22 11:47 IMPRESSION: 1. Prominent reticular nodular opacities with regions of honeycombing and bronchiectatic changes greatest in the bilateral lower lung darden suggesting elements of interstitial lung disease. Bilateral lower lung volumes and volume loss of the left lung field. 2. Patchy radiopacities and pleural thickening in the bilateral lower lung darden, left greater than right, may represent infectious/inflammatory etiology versus atelectatic changes superimposed on chronic parenchymal changes. Correlation with symptomatology. 3. Multiple enlarged paratracheal, precarinal and periaortic lymph nodes the largest measuring 1.5 cm in short axis. 4. Right colonic interpositioning, Chilaiditi syndrome. Mental Status Exam Mental Status Exam Narrative: Pleasant. Engaged. There is evidence of some memory impairment. Is paranoid and slightly guarded. No evidence depression. No SI or HI. Insight and judgment is limited. Medications Medications Current Medications Acyclovir (Acyclovir 200 Mg Capsule) 400 mg PO BID [facility] Last Admin: 01/11/22 10:24 Dose: 400 mg Amoxicillin/Clavulanate Potassium (Amoxicillin/Potassium Clav 875 Mg Tablet) 875 mg PO Q12H [facility] Last Admin: 01/11/22 10:25 Dose: 875 mg Enoxaparin Sodium (Enoxaparin Sodium 40 Mg/0.4 Ml Syringe) 40 mg SUBCUT Q24H [facility] Last Admin: 01/11/22 12:13 Dose: 40 mg Escitalopram Oxalate (Escitalopram Oxalate 5 Mg Tablet) 5 mg PO DAILY [facility] Last Admin: 01/11/22 10:25 Dose: 5 mg Ferrous Sulfate (Ferrous Sulfate 324 Mg Tablet.) 324 mg PO DAILY [facility] Last Admin: 01/11/22 10:25 Dose: 324 mg Finasteride (Finasteride 5 Mg Tablet) 5 mg PO DAILY [facility] Last Admin: 01/11/22 10:25 Dose: 5 mg Gabapentin (Gabapentin 300 Mg Capsule) 300 mg PO TID [facility] Last Admin: 01/11/22 10:25 Dose: 300 mg Insulin Glargine (Insulin Glargine,Hum.Rec.Anlog 100 Unit/Ml 10 Ml Vial) 15 unit SUBCUT DAILY@1999 [facility] Last Admin: 01/10/22 19:59 Dose: 15 unit Insulin Human Lispro (Insulin Lispro 100 Unit/Ml 3 Ml Vial) 0 unit SUBCUT TIDAC [facility]; Protocol Last Admin: 01/11/22 12:13 Dose: 2 unit Loperamide HCl (Loperamide Hcl 2 Mg Capsule) 2 mg PO TID PRN PRN Reason: Diarrhea Loratadine (Loratadine 10 Mg Tablet) 10 mg PO DAILY PRN PRN Reason: Allergic Symptoms Olanzapine (Olanzapine 10 Mg Vial) 5 mg IM DAILY PRN PRN Reason: agitation Last Admin: 01/10/22 22:30 Dose: 5 mg Omeprazole (Omeprazole 20 Mg Capsule.) 20 mg PO DAILY@0630 [facility] Last Admin: 01/11/22 05:45 Dose: Not Given Pharmacy Consult (Consult Rx Perform Med Rec) 1 each MISCELLANE ONCE PRN PRN Reason: Consult order Potassium Chloride (Potassium Chloride Er 10 Meq Capsule.Er) 10 meq PO DAILY [facility] Last Admin: 01/11/22 10:25 Dose: 10 meq Pravastatin Sodium (Pravastatin Sodium 40 Mg Tablet) 40 mg PO DAILY@1999 [facility] Last Admin: 01/10/22 19:49 Dose: 40 mg Senna (Sennosides 8.6 Mg Tablet) 8.6 mg PO BEDTIME PRN PRN Reason: Constipation Tamsulosin HCl (Tamsulosin Hcl 0.4 Mg Capsule) 0.4 mg PO DAILY@1999 [facility] Last Admin: 01/10/22 19:50 Dose: 0.4 mg Tiotropium [place] (Tiotropium [place] 18 Mcg Cap.W.Dev) 1 puff INHALE RDAILY [facility] Last Admin: 01/11/22 08:27 Dose: Not Given Allergies Allergies Allergy/AdvReac Type Severity Reaction Status Date / Time morphine Allergy Unknown Unknown Verified 01/08/22 08:46 Assessment & Plan Assessment & Plan (1) Delirium due to another medical condition: Status: Acute Code(s): F05 - Delirium due to known physiological condition Assessment and Plan: Presents with establish cognitive impairment and now superimposed delirium in the context of hypoxia. Did show some response to olanzapine given this morning IV less paranoid and agitated. Would recommend scheduling olanzapine 2.5 mg morning and bedtime to help with sleep and also paranoia. As medical condition improves, could take olanzapine away. Also utilize olanzapine 2.5 mg as needed up to 4 times per day for agitation secondary to delirium. Does not have capacity to discharge against medical advice. Will sign off case for now. Please re-consult if needed. I spent minutes with the patient and/or on the patient floor today, greater than?50% of which was spent counseling/coordinating care.
[2022-01-11] MEDS: iohexoL 350 MG/ML 100 ML INFUS..BTL IV (15:53)
[2022-01-11 16:31] LABS: Glucose, Whole Blood 93 mg/dL (60-115)
[2022-01-11] MEDS: Pravastatin Sodium 40 MG TABLET PO (19:16)
[2022-01-11] MEDS: OLANZapine 2.5 MG TABLET PO (19:16)
[2022-01-11] MEDS: Tamsulosin HCL 0.4 MG CAPSULE PO (19:16)
[2022-01-11 20:18] LABS: Glucose, Whole Blood 131 mg/dL (60-115)
[2022-01-11] MEDS: Insulin Glargine,Hum.rec.anlog 100 UNIT/ML 10 ML VIAL 15 UNIT SUBCUT (20:30)
[2022-01-12 03:25] VITALS: BP 151/76; PULSE 66; RESP 17; TEMP 36; O2SAT 92
[2022-01-12] MEDS: Omeprazole 20 MG CAPSULE.DR PO (05:30)
[2022-01-12 07:22] LABS: Glucose, Whole Blood 102 mg/dL (60-115)
[2022-01-12 07:26] VITALS: BP 134/78; PULSE 65; RESP 14; TEMP 35.9; O2SAT 92
--- NOTE | 2022-01-12 08:12 | PM.NEUROCN ---
History of Present Illness Data of Consult Service Date: 01/12/22 Primary Care Provider: Unknown Physician HPI Reason for consult: Confusion 86-year-old male with past medical history significant for coronary artery disease s/p CABG x4, sick sinus syndrome s/p pacer, idiopathic pulmonary fibrosis, COPD, uncontrolled type 2 diabetes, hypertension, BPH, GERD, and dementia who I was asked to see for confusion/agitation. Apparently his baseline was that he was able to communicate in state his needs. When I saw him he was comfortable looking around. Review of Systems Review of Systems: No obvious cold or flu-like illness PMFSH Past Medical History Medical History (Updated 01/11/22 @ 14:32 by Alfred Segundo MD) CAD (coronary artery disease) COPD (chronic obstructive pulmonary disease) COPD exacerbation Dementia Diabetes GERD (gastroesophageal reflux disease) HTN (hypertension) Pacemaker SSS (sick sinus syndrome) Family History Family History (Updated 01/08/22 @ 16:37 by CLAUDETTE Nguyen) Other No significant family history Surgical History Surgical History (Updated 01/08/22 @ 16:08 by CLAUDETTE Nguyen) History of permanent cardiac pacemaker placement S/P CABG x 4 Social History Social History (Updated 01/08/22 @ 08:44 by Joanie Renteria DO) Household Members: Other Housing: Assisted Living Facility Do you presently have visiting nurse or other home services: No Patient Tobacco Use Status: Never used Tobacco Use of substances other than those prescribed or required for medical reasons: No Currently Displaying Signs/Symptoms of Drug Intoxication Withdrawal: No Have you been hit, kicked, punched, or otherwise hurt by someone within the past year? If so, by whom?: No Do you feel safe in your current relationship?: No Current Relationship Is there a partner from a previous relationship who is making you feel unsafe now?: No Are you made to feel afraid or neglected: No Advance Directives: No Do you have thoughts of harming others: None Do you have a plan to hurt others: No Plan Nutrition Risks: No Nutritional Risk Poor oral hygiene: No service: No Current occupational status: retired Meds Allergies Allergy/AdvReac Type Severity Reaction Status Date / Time morphine Allergy Unknown Unknown Verified 01/08/22 08:46 Active Medications: Current Medications Acyclovir (Acyclovir 200 Mg Capsule) 400 mg PO BID [place] Last Admin: 01/11/22 19:16 Dose: 400 mg Amoxicillin/Clavulanate Potassium (Amoxicillin/Potassium Clav 875 Mg Tablet) 875 mg PO Q12H [facility] Last Admin: 01/11/22 19:17 Dose: 875 mg Enoxaparin Sodium (Enoxaparin Sodium 40 Mg/0.4 Ml Syringe) 40 mg SUBCUT Q24H [facility] Last Admin: 01/11/22 12:13 Dose: 40 mg Escitalopram Oxalate (Escitalopram Oxalate 5 Mg Tablet) 5 mg PO DAILY [facility] Last Admin: 01/11/22 10:25 Dose: 5 mg Ferrous Sulfate (Ferrous Sulfate 324 Mg Tablet.) 324 mg PO DAILY [facility] Last Admin: 01/11/22 10:25 Dose: 324 mg Finasteride (Finasteride 5 Mg Tablet) 5 mg PO DAILY [facility] Last Admin: 01/11/22 10:25 Dose: 5 mg Gabapentin (Gabapentin 300 Mg Capsule) 300 mg PO TID [facility] Last Admin: 01/11/22 19:17 Dose: 300 mg Insulin Glargine (Insulin Glargine,Hum.Rec.Anlog 100 Unit/Ml 10 Ml Vial) 15 unit SUBCUT DAILY@1999 [facility] Last Admin: 01/11/22 20:30 Dose: 15 unit Insulin Human Lispro (Insulin Lispro 100 Unit/Ml 3 Ml Vial) 0 unit SUBCUT TIDAC [facility]; Protocol Last Admin: 01/12/22 07:34 Dose: Not Given Loperamide HCl (Loperamide Hcl 2 Mg Capsule) 2 mg PO TID PRN PRN Reason: Diarrhea Loratadine (Loratadine 10 Mg Tablet) 10 mg PO DAILY PRN PRN Reason: Allergic Symptoms Olanzapine (Olanzapine 2.5 Mg Tablet) 2.5 mg PO BID [facility] Last Admin: 01/11/22 19:16 Dose: 2.5 mg Olanzapine (Olanzapine 10 Mg Vial) 2.5 mg IM Q6H PRN PRN Reason: agitation Omeprazole (Omeprazole 20 Mg Capsule.) 20 mg PO DAILY@0630 [facility] Last Admin: 01/12/22 05:30 Dose: 20 mg Pharmacy Consult (Consult Rx Perform Med Rec) 1 each MISCELLANE ONCE PRN PRN Reason: Consult order Potassium Chloride (Potassium Chloride Er 10 Meq Capsule.Er) 10 meq PO DAILY [facility] Last Admin: 01/11/22 10:25 Dose: 10 meq Pravastatin Sodium (Pravastatin Sodium 40 Mg Tablet) 40 mg PO DAILY@1999 [facility] Last Admin: 01/11/22 19:16 Dose: 40 mg Senna (Sennosides 8.6 Mg Tablet) 8.6 mg PO BEDTIME PRN PRN Reason: Constipation Tamsulosin HCl (Tamsulosin Hcl 0.4 Mg Capsule) 0.4 mg PO DAILY@1999 [facility] Last Admin: 01/11/22 19:16 Dose: 0.4 mg Tiotropium [place] (Tiotropium [place] 18 Mcg Cap.W.Dev) 1 puff INHALE RDAILY [facility] Last Admin: 01/11/22 08:27 Dose: Not Given Home Medications Medication Instructions Recorded Confirmed Last Taken Type acyclovir 400 mg tablet 1 tab PO BID 01/08/22 01/08/22 Unknown History albuterol sulfate 90 mcg/actuation 2 puff inhalation Q6H PRN Wheezing 01/08/22 01/08/22 Unknown History aerosol inhaler aspirin 81 mg tablet,delayed 81 mg PO DAILY 01/08/22 01/08/22 Unknown History release cholecalciferol (vitamin D3) 25 25 mcg PO DAILY 01/08/22 01/08/22 Unknown History mcg (1,000 unit) tablet escitalopram oxalate 5 mg tablet 1 tab PO DAILY 01/08/22 01/08/22 Unknown History ferrous sulfate 324 mg (65 mg 324 mg PO DAILY 01/08/22 01/08/22 Unknown History iron) tablet,delayed release finasteride 5 mg tablet 1 tab PO DAILY 01/08/22 01/08/22 Unknown History gabapentin 300 mg capsule 1 cap PO TID 01/08/22 01/08/22 Unknown History insulin glargine 100 unit/mL (3 15 unit subcut DAILY@199901/08/22 01/08/22 Unknown History mL) subcutaneous pen (Stacyaglar Lisa U-100 Insulin) insulin lispro 100 unit/mL 6 unit subcut TIDAC 01/08/22 01/08/22 Unknown History subcutaneous solution loperamide 2 mg tablet 2 mg PO TID PRN Diarrhea 01/08/22 01/08/22 Unknown History loratadine 10 mg tablet 10 mg PO DAILY PRN Allergic 01/08/22 01/08/22 Unknown History Symptoms metformin 500 mg tablet,extended 1 tab PO BID 01/08/22 01/08/22 Unknown History release 24 hr multivitamin 1 tab PO DAILY 01/08/22 01/08/22 Unknown History omeprazole 20 mg capsule,delayed 1 cap PO DAILY 01/08/22 01/08/22 Unknown History release potassium chloride 10 mEq 1 cap PO DAILY 01/08/22 01/08/22 Unknown History capsule,extended release pravastatin 40 mg tablet 1 tab PO DAILY@199901/08/22 01/08/22 Unknown History sennosides 8.6 mg tablet (senna) 8.6 mg PO BEDTIME PRN Constipation 01/08/22 01/08/22 Unknown History sulfamethoxazole 800 1 tab PO MOWEFR@1200 01/08/22 01/08/22 Unknown History mg-trimethoprim 160 mg tablet tamsulosin 0.4 mg capsule 1 cap PO DAILY@199901/08/22 01/08/22 Unknown History umeclidinium 62.5 mcg/actuation 1 puff inhalation DAILY 01/08/22 01/08/22 Unknown History blister powder for inhalation (Incruse Ellipta) vitamin B complex 1 tab PO DAILY 01/08/22 01/08/22 Unknown History Physical Exam Vital Signs: Vital Signs: Last Vital Signs Temp 96.7 F L 01/12/22 07:26 Pulse 65 01/12/22 07:26 Resp 14 01/12/22 07:26 BP 134/78 01/12/22 07:26 Pulse Ox 92 01/12/22 07:26 O2 Del Method 01/12/22 07:26 O2 Flow Rate 2.0 01/12/22 07:26 Oxygen Flow Rate 6 01/10/22 22:20 BMI result Body Mass Index 26.2 Neuro: Other: He was alert and awake talking and mumbling and in between comprehending and answering simple questions. When I ask him where he was, he rambled for couple of minutes talking about tennis and basketball but could not tell me where he was. When I asked him what his address was he was unable to tell me. He was able to follow one-step commands. Face was symmetrical. Visual darden seem to be full. There was no pronator drift. Deep tendon reflexes are absent with flexor plantars. Results Labs CBC & Chem 7: 01/11/22 11:18 01/11/22 11:18 Labs: Short CBC 01/11/22 Range/Units 11:18 WBC 14.1 H (4.8-10.8) X10*3/uL Hgb 11.0 L (14.0-18.0) g/dl Hct 34.2 L (42.0-52.0) % Plt Count 154 L (160-400) X10*3/uL BMP 01/11/22 11:18 Sodium 141 Potassium 4.3 Chloride 106 Carbon Dioxide 24 BUN 18 H D Creatinine 0.[address]cium [address] revealed moderate to severe diffuse cerebral and cerebellar cortical and central atrophy with microvascular changes of brain. Microbiology Microbiology Results: Microbiology 01/08/22 14:48 Blood - Venous Blood Culture - Preliminary No growth after 48 hours. 01/08/22 14:39 Blood - Venous Blood Culture - Preliminary No growth after 48 hours. 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 His recent worsening was likely due to metabolic reasons or not neurological reason. At this time he was calmed and probably back to his baseline. I recommend starting him on memantine 5 mg twice a day, which has been known to improve quality of life for this type of patient Procedures Date of Service Date of Service: 01/12/22
[2022-01-12 08:35] VITALS: PULSE 65; RESP 22; O2SAT 91
[2022-01-12] MEDS: Gabapentin 300 MG CAPSULE PO ×2 (08:59→14:15)
[2022-01-12] MEDS: Ferrous Sulfate 324 MG TABLET.DR PO (08:59)
[2022-01-12] MEDS: OLANZapine 2.5 MG TABLET PO (08:59)
[2022-01-12] MEDS: Escitalopram Oxalate 5 MG TABLET PO (08:59)
[2022-01-12] MEDS: Acyclovir 200 MG CAPSULE 400 MG PO (08:59)
[2022-01-12] MEDS: Amoxicillin/Potassium Clav 875 MG TABLET PO (08:59)
[2022-01-12] MEDS: Finasteride 5 MG TABLET PO (08:59)
[2022-01-12 11:10] LABS: Glucose, Whole Blood 96 mg/dL (60-115)
[2022-01-12 11:35] VITALS: BP 150/85; PULSE 65; RESP 16; TEMP 36.5; O2SAT 92
[2022-01-12] MEDS: Enoxaparin Sodium 40 MG/0.4 ML SYRINGE SUBCUT (11:48)
--- NOTE | 2022-01-12 11:48 | MHC.SL.SWA ---
Speech Pathologist Impression: EVALUATION 01/09 WF Risk of Aspiration Due to: History of Pneumonia Dysphasia Diet Status: No change Liquid Consistency and Strategies for Safe Swallow: Liquid Intake Recommendation: Thin Liquid Intake Strategies: Small Sips No Straws Solid Food Consistency: Dietary Recommendations: Regular Additional Modifications to Solid Foods: Alternate liquids and solids to clear residual on dentures. Patient is fully independent, able to feed self without difficulty. Oral Medication Intake: Whole with Puree Please contact the pharmacy regarding appropriate crushable or liquid drug formulations that are available whenever modified delivery is recommended. Compensatory Strategies and Precautions to be Taken for Safe Swallow: Sitting Upright (90 deg) No Straw Small Bites and Sips Alternate Liquids/Solids Rate of Ingestion Change Avoid Specific Foods Supervision While Eating and Drinking for Safe Swallow: Intermittent Supervision Foods to Avoid: Difficult to chew solids, due to dentures. Swallowing Recommended Treatments: Compens. Strategy Educat. Recommendation for Speech: NA:Typical Evaluation D/C Hogshead Filler Clinican/Clinical Fellow: No Supervisory Statement: I have reviewed and agree with the student/clinical fellow's documentation: N/A Speech Language Pathologist: Augustina Cody M.A., CCC-AXLE INSPECTOR
[2022-01-12 14:39] LABS: COVID-19 Test Negative (Negative); IDNOW Serial# 9DB6401D
--- NOTE | 2022-01-12 15:22 | MHC.CM.PN ---
Patient has been medically cleared for discharge today to [facility]. He will be transported via BLS ambulance. Patient's daughter/HCP Diane has been informed of discharge and 2nd IMM had been addressed. Form has been mailed to Diane and copy filed in chart.
--- NOTE | 2022-01-12 15:37 | PM.DS ---
DS: Providers Provider Date of Service: 01/12/22 Date of admission: 01/08/22 15:41 Primary care physician: Unknown Physician DS: Diagnosis Discharge Diagnosis (1) Acute hypoxemic respiratory failure: Status: Acute (2) Aspiration pneumonia of both lungs: Status: Acute (3) Metabolic encephalopathy: Status: Acute (4) Dementia: Status: Acute (5) COPD exacerbation: Status: Acute DS: Summary Hospital Course Hospital Course: ? AMS/pneumonia?<CLAUDETTE Nguyen - Last Filed: 01/09/22 08:03> ? ? ? Patient is an 86-year-old male with past medical history significant for coronary artery disease s/p CABG x4, sick sinus syndrome s/p pacer, idiopathic pulmonary fibrosis, COPD, uncontrolled type 2 diabetes, hypertension, BPH, GERD, and dementia who resides at [facility]. long-term staff reports that patient has been increasingly agitated over the last day with decreased oxygen saturation.? The patient is on 4 L of oxygen via nasal cannula at baseline with oxygen levels ranging between 90-92%.? However the patient has been pulling off the nasal cannula due to agitation with oxygen saturations down to 69%. Improvement to 98% on 10L with non rebreather. In ED oxygen sat did fall to 86% on 4L. Upon discussion with direct nursing staff, the patient is alert and oriented at baseline and is able to make his needs known.? He does have occasional episodes of agitation with screaming outbursts but is quickly redirected.? He has had recurrent admissions due to aspiration pneumonia, most recently to [facility] on 10/29/2021.? Per nursing staff from the [facility], vital signs have been stable and the patient has been afebrile. Patient is unable to provide much history.? He is able to answer several questions before becoming agitated about being in the hospital and the ?cords? he is hooked up to.? Much of history obtained from prior records from [facility] as well as [facility] staff. EKG in ED showed normal sinus rhythm with complete heart block with ventricular pacing.? CT of the chest shows prominent reticular nodular opacities with regions of honeycombing and bronchiectatic changes in the bilateral lower lung darden, patchy radiopacities and pleural thickening in the bilateral lower lung darden, possibly representing infectious versus inflammatory etiology versus atelectatic changes superimposed on chronic parenchymal changes.? Hematology studies stable, WBC 9.8.? VBG essentially normal with mildly elevated HC03 of 28.? Chemistries unremarkable.? Urinalysis is significant for 3+ hematuria. Has received IV zosyn and continues on 2L oxygen with stable o2 sats. Has received single dose of zyprexa due to aggitation thought patient still having outbreaks of aggitation.?<CLAUDETTE Nguyen - Last Filed: 01/09/22 08:03> ?86-year-old male with history significant for coronary artery disease s/p CABG x4, sick sinus syndrome s/p pacer, idiopathic pulmonary fibrosis, COPD, uncontrolled type 2 diabetes, hypertension, BPH, GERD, and dementia who resides at [facility]. long-term staff reports that patient has been increasingly agitated over the last day with decreased oxygen saturation.? The patient is on 4 L of oxygen via nasal cannula at baseline with oxygen levels ranging between 90-92%.? However the patient has been pulling off the nasal cannula due to agitation with oxygen saturations down to 69%. Improvement to 98% on 10L with non rebreather. In ED oxygen sat did fall to 86% on 4L. Upon discussion with direct nursing staff, the patient is alert and oriented at baseline and is able to make his needs known.? He does have occasional episodes of agitation with screaming outbursts but is quickly redirected.? He has had recurrent admissions due to aspiration pneumonia, most recently to [facility] on 10/29/2021.? Per nursing staff from the [facility], vital signs have been stable and the patient has been afebrile. Patient is unable to provide much history.? He is able to answer several questions before becoming agitated about being in the hospital and the ?cords? he is hooked up to.? Much of history obtained from prior records from [facility] as well as [facility] staff. EKG in ED showed normal sinus rhythm with complete heart block with ventricular pacing.? CT of the chest shows prominent reticular nodular opacities with regions of honeycombing and bronchiectatic changes in the bilateral lower lung darden, patchy radiopacities and pleural thickening in the bilateral lower lung darden, possibly representing infectious versus inflammatory etiology versus atelectatic changes superimposed on chronic parenchymal changes.? Hematology studies stable, WBC 9.8.? VBG essentially normal with mildly elevated HC03 of 28.? Chemistries unremarkable.? Urinalysis is significant for 3+ hematuria. Has received IV zosyn and continues on 2L oxygen with stable o2 sats. Has received single dose of zyprexa due to aggitation thought patient still having outbreaks of aggitation. Hospital course: Patient was admitted for acute hypoxic respiratory failure related to exacerbation copd and aspiration event. In the hospital was given IV antibiotic for aspriation pneumonia and will be changed to oral augmentin 875 bid 12 for 7 days, he is afebrile, WBC were initially normal but went up due to steroid. As for copd exacerbation with underlying interstitial lung disease,treated with bronchodilators scheduled and PRN, and continued on oxygen. He was on steroid but this may have exacerbated his delirium and therefore was discontinued. He had periods of extreme agitation and agression likely multifacetted delirium including hypoxia, steroid...He required zyprex to control behaveior and the we obatined Psychiatry consult with recommendation as follow: would recommend scheduling olanzapine 2.5 mg morning and bedtime to help with sleep and also paranoia.? As medical condition improves, could take olanzapine away.? Also utilize olanzapine 2.5 mg as needed up to 4 times per day for agitation secondary to delirium. He was also seen by Neurologist Dr. 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 His recent worsening was likely due to metabolic reasons or not neurological reason.? At this time he was calmed and probably back to his baseline.? I recommend starting him on memantine 5 mg twice a day, which has been known to improve quality of life for this type of patient .. He is therefore been initiated on Memantine 5 mg twice a day and for now will continue Olanzapine 2.5 mg twice as this seem to be helping him stay calm, cooperative and can be withdrawn in the near future Of note had a CT of the head showing no acute finding, a because of hypoxia a chest CT was done and showed no PE but reveal a 4 cm thoracic aortic aneurysm without dissection and should be followed on outpatient basis . Following discussion with the patietnt's daughter over the phone it is evident that patient has benefited for olanzapine and therefore should not be discontinued prematurely and unless there become a clear evidence contrary to use it. del his encephalpathy is likely related to hypoxia and therefore should have oxygen on as prescribed. Time Spent with Patient Time attestation: Total time spent providing and/or coordinating discharge services: Discharge coordination time: Greater than 30 minutes Quality: Safe Use of Opioids Does Pt have an Active Cancer Diagnosis on the Problem List?: No Quality: Stroke Does the patient have a stroke diagnosis?: No Physical Exam Vital Signs: Vital Signs: Selected Entries 01/12/22 11:35 Temperature 97.7 F Pulse Rate 65 Respiratory Rate 16 Blood Pressure 150/85 H Pulse Oximetry 92 Oxygen Delivery Me thod Nasal Cannula Oxygen Flow Rate 2.0 DS: Data Data Completed and Pending Labs on day of discharge: Laboratory Results - last 24 hr 01/09/22 01/09/22 01/09/22 11:00 15:27 15:32 WBC 9.8 RBC 3.48 L Hgb 11.3 L Hct 34.8 L MCV 100.0 H MCH 32.5 MCHC 32.5 RDW 14.9 Plt Count 155 L MPV 10.1 Absolute Nucleated RBC 0.000 Nucleated RBC % (auto) 0.0 POC Glucose 140 H 237 H 01/09/22 01/10/22 19:13 07:53 WBC RBC Hgb Hct MCV MCH MCHC RDW Plt Count MPV Absolute Nucleated RBC Nucleated RBC % (auto) POC Glucose 170 H 165 H Preliminary micro results at discharge 01/08/22 14:48 Blood Culture - Preliminary Blood - Venous No growth after 24 hours. 01/08/22 14:39 Blood Culture - Preliminary Blood - Venous No growth after 24 hours. Discharge Plan Discharge Anticipated Discharge Date/Time: 01/12/22 09:35 Patient Disposition: Xfer SNF Discharge Diagnosis: COPD exacerbation, acute hypoxic respiratory failure, encephalopathy Referrals: Kellie [facility] [Outside] Physician,Unknown J [Primary Care Provider] - 1 Week Discharge Medications: New amoxicillin-pot clavulanate 875-125 mg Tablet 875 mg PO Q12H Qty: 9 0RF Continued potassium chloride 10 mEq capsule, extended release 1 cap PO DAILY pravastatin 40 mg tablet 1 tab PO DAILY@1999 acyclovir 400 mg tablet 1 tab PO BID sulfamethoxazole-trimethoprim 800-160 mg tablet 1 tab PO MOWEFR@1200 tamsulosin 0.4 mg capsule 1 cap PO DAILY@1999 gabapentin 300 mg capsule 1 cap PO TID omeprazole 20 mg capsule,delayed release(DR/EC) 1 cap PO DAILY insulin lispro 100 unit/mL solution 6 unit subcut TIDAC metformin 500 mg tablet extended release 24 hr 1 tab PO BID finasteride 5 mg tablet 1 tab PO DAILY escitalopram oxalate 5 mg tablet 1 tab PO DAILY insulin glargine [Basaglar KwikPen U-100 Insulin] 100 unit/mL (3 mL) insulin pen 15 unit subcut DAILY@1999 Incruse Ellipta 62.5 mcg/actuation blister with device 1 puff inhalation DAILY multivitamin Tablet 1 tab PO DAILY sennosides [senna] 8.6 mg Tablet 8.6 mg PO BEDTIME PRN (Reason: Constipation) loperamide 2 mg Tablet 2 mg PO TID PRN (Reason: Diarrhea) aspirin 81 mg Tablet,Delayed Release (Dr/Ec) 81 mg PO DAILY vitamin B complex Tablet 1 tab PO DAILY albuterol sulfate 90 mcg/actuation Hfa Aerosol Inhaler 2 puff INHALATION Q6H PRN (Reason: Wheezing) loratadine 10 mg Tablet 10 mg PO DAILY PRN (Reason: Allergic Symptoms) cholecalciferol (vitamin D3) 25 mcg (1,000 unit) Tablet 25 mcg PO DAILY ferrous sulfate 324 mg (65 mg iron) Tablet,Delayed Release (Dr/Ec) 324 mg PO DAILY Discharge Orders: Discharge Order (Routine); Ordered 01/12/22 Ordered By: Param David Diet: Advance to usual diet Activity on Discharge: As tolerated Stand Alone Forms: Patient Portal Discharge page Activity Restrictions/Additional Instructions: return to ED for any worsening symptoms or concerns no hypoxia so long as on oxygen - Care Plan Goals: full recovery from resp failure, aspiration and control of dementia with behavioral issues Health Concerns: hypoxic encephalopathy, aspiration Plan of Treatment: take augmentin as recommended and follow up with your docotor in a week Take Zyprexa 2.5 mg in the morning and at bedtime, change to 2.5 mg , and 2.5 Q6 PRN to control agitation --this was discussed with daughter Follow up with Vascular surgeon Dr. Carlisle for arotic aneurysm take memantine as recommended for ratna Assessment: as above
[2022-01-12 16:21] LABS: Glucose, Whole Blood 142 mg/dL (60-115)
== END 2022-01-12 16:20 | disposition skilled nursing facility (03) | DRG 177 ==
LOC: HO.ED 14:36 → HO.EDOVER 16:40 → HO.S3 16:44
PROVIDERS: Emergency Medicine; Admitting Provider Physician Assistant; Emergency Provider Internal Medicine; Visit Provider Internal Medicine
DX: J69.0 Pneumonitis due to inhalation of food and vomit (principal); G93.41 Metabolic encephalopathy; J96.01 Acute respiratory failure with hypoxia; F03.91 Unspecified dementia, unspecified severity, with behavioral disturbance; J44.1 Chronic obstructive pulmonary disease with (acute) exacerbation; F05 Delirium due to known physiological condition; I25.10 Atherosclerotic heart disease of native coronary artery without angina pectoris; K21.9 Gastro-esophageal reflux disease without esophagitis; R31.9 Hematuria, unspecified; I49.5 Sick sinus syndrome; J84.10 Pulmonary fibrosis, unspecified; N40.0 Benign prostatic hyperplasia without lower urinary tract symptoms; E11.8 Type 2 diabetes mellitus with unspecified complications; Z20.822 Contact with and (suspected) exposure to COVID-19; Z87.01 Personal history of pneumonia (recurrent); Z95.0 Presence of cardiac pacemaker; Z95.1 Presence of aortocoronary bypass graft; Z88.5 Allergy status to narcotic agent; Z79.82 Long term (current) use of aspirin; Z79.4 Long term (current) use of insulin; Z79.899 Other long term (current) drug therapy
CPT/HCPCS: 36415; 36600; 70450; 71045; 71250; 71275; 80048; 80076; 81001; 82140; 82803; 82947; 83605; 83735; 85025; 85027; 85379; 87040; 87635; 92526; 92610; 93005; 94640; 99285; J1650; J2270; J2543; J2920; Q9967